=== PATIENT | male | born 1975 | race Two or more races ===

== ENCOUNTER 2021-01-08 16:03 | Outpatient (REF) | payer OTHER, SELFPAY ==
[2021-01-08 17:01] LABS: Hematocrit 46.1 % (42-52); Hemoglobin 15.5 g/dl (14.0-18.0); Mean Corpuscular HGB Conc 33.6 g/dl (31.0-36.0); Mean Corpuscular Hemoglobin 29.5 pg (27.0-33.0); Mean Corpuscular Volume 87.8 fL (80-98); Mean Platelet Volume 12.2 fL (9.4-12.4); Platelet Count 217 X10*3/uL (160-400); Red Blood Count 5.25 X10*6/uL (4.60-5.80); Red Cell Distribution Width 12.2 % (11.0-16.0); White Blood Count 9.5 X10*3/uL (4.8-10.8)
[2021-01-08 17:35] LABS: Alanine Aminotransferase 14 U/L (0-40); Albumin Level 4.1 g/dL (3.5-5.0); Alkaline Phosphatase 58 U/L (39-117); Anion Gap 11 (12-20); Aspartate Amino Transferase 16 U/L (5-37); Bilirubin Direct 0.3 mg/dL (0.0-0.5); Blood Urea Nitrogen 18 mg/dL (9-16); Calcium 8.7 mg/dL (8.4-10.2); Carbon Dioxide 29 mmol/L (22-29); Chloride 107 mmol/L (96-108); Cholesterol 193 mg/dL; Estimated Glomerular Filt Rate > 60; Glucose Random 83 mg/dL (60-115); HDL Cholesterol 43 mg/dL; LDL Cholesterol Calculated 124 mg/dl; Potassium 4.4 mmol/L (3.3-5.1); Sodium 143 mmol/L (135-145); Total Protein 6.8 g/dL (6.5-8.0); Triglycerides 132 mg/dL
[2021-01-08 18:07] LABS: Folate 15.9 ng/mL (> or = 4.0); Vitamin B12 867 pg/mL (200-900)
[2021-01-13 12:56] LABS: Vitamin D 25-OH, D2 <4 ng/mL; Vitamin D 25-OH, D3 29 ng/mL; Vitamin D 25-OH, Total 29 ng/mL (30-100)
== END 2021-01-08 16:04 | disposition home or self-care (01) ==
LOC: HO.LAB 16:03
PROVIDERS: PCP Internal Medicine; Visit Provider Internal Medicine
DX: R10.84 Generalized abdominal pain (principal)
CPT/HCPCS: 36415; 80048; 80061; 80076; 82306; 82607; 82746; 84443; 85027

== ENCOUNTER → 2021-03-22 08:37 | Outpatient (BNVA) | payer OTHER, SELFPAY | PROVIDERS: PCP Internal Medicine; Referring Provider Internal Medicine; Visit Provider Nurse Practitioner | DX: K58.1 Irritable bowel syndrome with constipation (principal); K63.89 Other specified diseases of intestine; R14.0 Abdominal distension (gaseous); D12.6 Benign neoplasm of colon, unspecified | CPT/HCPCS: 99202 ==

== ENCOUNTER → 2021-04-03 10:53 | Outpatient (BNVA) | payer OTHER, SELFPAY | PROVIDERS: Visit Provider Nurse Practitioner ==

== ENCOUNTER 2021-04-25 11:12 | Day surgery (SDC) | payer OTHER, SELFPAY ==
[2021-04-20 09:24] VITALS: BMI 26.0
--- NOTE | 2021-04-24 09:30 | HO.ANESPROP2 ---
Documented by User: Lilo Licona 04/24/21 09:35 HPI - Anesthesia Eval Consult details Narrative: 45yo M for Colonoscopy prn opioids PMFSH Active Problems Active Problems: All Active Problems (Updated 04/20/21 @ 09:22 by Andree Blood) Abdominal pain (Acute) Chronic lower back pain (Acute) Irritable bowel syndrome with constipation (Acute) Abdominal bloating (Acute) Small intestinal bacterial overgrowth (Acute) Tubular adenoma of colon (Acute) Past Medical History Medical History (Updated 04/20/21 @ 09:22 by Andree Blood) IBS (irritable bowel syndrome) Family History Family History Mother Cancer Father Acid reflux disease Surgical History Surgical History (Updated 04/20/21 @ 09:22 by Andree Blood) History of appendectomy History of hernia surgery History of pelvic surgery Hx of colonoscopy Social History Social History Household Members: Spouse and Children Alcohol intake: former Advance Directives: No Advance Directives Information Provided: No Advance Directives on File: No Recently lost weight without trying: No Eating poorly because of decreased appetite: No Nutrition Risks: No Nutritional Risk Meds Allergies Allergy/AdvReac Type Severity Reaction Status Date / Time No Known Allergies Allergy Verified 04/20/21 09:22 Home Medications Medication Instructions Recorded Confirmed Last Taken Type oxycodone 5 mg tablet 5 mg PO QID PRN 03/22/21 Unknown History Exam Exam Date and Time: April 24, 2021 0930 Height,Weight and Vital Signs: Height 6 ft 2 in Weight 92.079 kg Assessment and Plan Assessment Anesthesia Assessment: Chart Reviewed Documented by User: Huma Felton 04/25/21 11:34 PMFSH Past Medical History Medical History (Updated 04/20/21 @ 09:22 by Andree Blood) IBS (irritable bowel syndrome) Family History Family History Mother Cancer Father Acid reflux disease Surgical History Surgical History (Updated 04/20/21 @ 09:22 by Andree Blood) History of appendectomy History of hernia surgery History of pelvic surgery Hx of colonoscopy Social History Social History Household Members: Spouse and Children Alcohol intake: former Advance Directives: No Advance Directives Information Provided: No Advance Directives on File: No Recently lost weight without trying: No Eating poorly because of decreased appetite: No Nutrition Risks: No Nutritional Risk Meds Allergies Allergy/AdvReac Type Severity Reaction Status Date / Time No Known Allergies Allergy Verified 04/20/21 09:22 Home Medications Medication Instructions Recorded Confirmed Last Taken Type oxycodone 5 mg tablet 5 mg PO QID PRN 03/22/21 Unknown History Exam Airway Mallampati Class: II (Missing a couple ) TM Dist: >3cm Neck ROM: Full Heart: rrr Lungs: cta Assessment and Plan Assessment Anesthesia Assessment: Anesthesia Plan Discussed and Chart Reviewed Final Anesthetic Review NPO: Yes (Sip water with meds) ASA Class: II Final Preanesthetic Review: No Changes in Pt Med Stat and Consent Obtained/Reviewed Patient Risk: Intermediate Procedure Risk: Intermediate Anesthetic Plan Anesthetic Plan: MAC: Disposition: Standard PACU
[2021-04-25 12:12] VITALS: BP 118/77; PULSE 63; RESP 16; TEMP 36.3; O2SAT 97
[2021-04-25] MEDS: Lactated Ringers 1,000 ML 100 ML IVCONT (12:28)
--- NOTE | 2021-04-25 12:53 | MHC.SHP ---
Pre-Procedural Eval Section B Chief Complaint: Screening Relevant Family History (Specify if Yes): No Relevant Social History: None Present Medications: see Short Stay Collaborative assessment Medical History: Significant History (IBS) History of Previous Operations: Relevant previous surgery/procedure and date(s) (History of appendectomy History of hernia surgery History of pelvic surgery Hx of colonoscopy) Allergies: Allergies Allergy/AdvReac Type Severity Reaction Status Date / Time No Known Allergies Allergy Verified 04/20/21 09:22 Review of Systems Sugical H&P ROS: Negative: Constitution, Cardiovascular, Respiratory, Neurological, Psychiatric, Hem-Onc, Allergic/Immunologic, Gastrointestinal, Genitourinary, Musculoskeletal, Integumentary, Endocrine and Eyes/Ears/Nose/Throat Exam Surgical H&P Exam: Normal: HEENT, Normal: Heart, Normal: Lungs, Normal: Extremities, Normal: Abdomen, Normal: Skin and Normal: Neurological Plan Diagnosis/Plan: Unchanged I have reviewed the history and physical and performed a pertinent physical examination on my patient. No changes have occurred unless specified.
--- NOTE | 2021-04-25 14:35 | PM.OP ---
Brief Operative Note Date of Service: 04/25/21 Pre-op diagnosis: colon screening Post-op diagnosis: same Procedure: see op note Surgeon: Chaparro Marinelli MD Anesthesia: MAC Was an [employer] used for this Procedure?: No Estimated blood loss (mL): 0 Condition: stable Disposition: PACU
--- NOTE | 2021-04-25 14:35 | W.PM.OPN ---
Operative Note Operative Note Date of Service: 04/25/21 Narrative: Operative Information Procedure Description: Colonoscopy COLONOSCOPY Instrument: Olympus variable stiffness pediatric scope 190L Colonoscopy Monitoring: Vital signs and clinical assessment, continuous EKG monitoring, Pulse oximetry, Carbon Dioxide monitoring and blood pressure monitoring were done throughout the procedure. Colon withdrawal time was 18 minutes. Procedure: The patient was placed in the left lateral decubitis position and pre-procedure medications were administered. After a digital rectal examination of the ano-rectum, the video colonoscope was inserted into the rectum and advanced through the colon to the cecum/TI. The colonoscope was slowly withdrawn in a retrograde panoramic fashion and the colon mucosa was carefully examined including a retroflexed view of the rectum. Findings and interventions are described below. Procedure Difficulty:easy Findings: Terminal Ileum-mild iletiis Cecum: mild erythema and few small erosions, bx taken Ascending Colon: normal, bx taken Transverse Colon -normal, bx taken Descending Colon:normal, bx taken Sigmoid Colon: normal, bx taken Rectum: Retroflexion with small internal hemorrhoids, grade I with skin tags, x 3 sessile polyps 5-7 mm removed with forceps Anorectum - normal Colon preparation: [place] Bowel Preparation Scale Right colon; 2 Transverse colon: 2 Left colon; 1 (0 = Unprepared colon segment with mucosa not seen due to solid stool that cannot be cleared. 1 = Portion of mucosa of the colon segment seen, but other areas of the colon segment not well seen due to staining, residual stool and/or opaque liquid. 2 = Minor amount of residual staining, small fragments of stool and/or opaque liquid, but mucosa of colon segment seen well. 3 = Entire mucosa of colon segment seen well with no residual staining, small fragments of stool or opaque liquid) Impression and Post Procedure Diagnosis: polyps internal hemorrhoids Plan: High fiber diet leaflet Avoid straining at stool, epsom salts and sitz bath, anusol supps or cream Repeat Colonoscopy in 5 years or earlier if clinically indicated Above findings were reviewed with the patient and relevant handouts were provided if indicated.
[2021-04-25 14:37] VITALS: BP 110/75; PULSE 89; RESP 16; TEMP 36.4; O2SAT 97
[2021-04-25 14:54] VITALS: BP 106/75; PULSE 66; RESP 18; O2SAT 100
== END 2021-04-25 15:15 | disposition home or self-care (01) ==
PROVIDERS: PCP Internal Medicine; Visit Provider Internal Medicine Gastroenterology
PROC: 0DJD8ZZ Inspection of Lower Intestinal Tract, Via Natural or Artificial Opening Endoscopic (ICD-10-PCS; CPT 45378; principal; 2021-04-25 12:20)
DX: Z12.11 Encounter for screening for malignant neoplasm of colon (principal); Z86.010 Personal history of colon polyps; K62.1 Rectal polyp; K62.89 Other specified diseases of anus and rectum; K63.89 Other specified diseases of intestine; K52.9 Noninfective gastroenteritis and colitis, unspecified; K64.0 First degree hemorrhoids; K64.4 Residual hemorrhoidal skin tags
CPT/HCPCS: 45380; 88305

== ENCOUNTER → 2021-05-21 14:32 | Outpatient (BNVA) | payer OTHER, SELFPAY | PROVIDERS: Visit Provider Nurse Practitioner ==

== ENCOUNTER 2021-08-06 12:32 | Outpatient (REF) | payer OTHER, SELFPAY ==
--- NOTE | ~2021-08-06 | XR_ITS ---
EXAMINATION: XR CHEST CLINICAL INFORMATION: Pleurodynia COMPARISON: None TECHNIQUE: 2 views of the chest were obtained. FINDINGS: No significant abnormality is noted involving the heart, lungs, mediastinum, bony thorax or soft tissues. XR/XR chest 2V IMPRESSION: Unremarkable examination.
--- NOTE | ~2021-08-06 | XR_ITS ---
EXAMINATION: XR LUMBOSACRAL SPINE CLINICAL INFORMATION: Low back pain. COMPARISON: None TECHNIQUE: Three views of the lumbosacral spine. FINDINGS: The vertebral bodies and posterior elements are normal. The disc spaces are preserved and the vertebral alignment is normal. The paraspinal soft tissues are normal. There has been evidence of a periumbilical hernia repair with mesh. XR/XR lumbar spine 2-3V IMPRESSION: Unremarkable examination.
== END 2021-08-06 12:33 | disposition home or self-care (01) ==
LOC: HO.XRAY 12:32
PROVIDERS: PCP Internal Medicine; Visit Provider Nurse Practitioner Family
DX: M54.5 Low back pain (principal); R07.81 Pleurodynia; G89.29 Other chronic pain
CPT/HCPCS: 71046; 72100

== ENCOUNTER → 2021-09-18 13:28 | Outpatient (BNVA) | payer OTHER, SELFPAY | PROVIDERS: PCP Internal Medicine; Referring Provider Internal Medicine; Visit Provider Internal Medicine | DX: R07.2 Precordial pain (principal); R06.02 Shortness of breath | CPT/HCPCS: 99202 ==

== ENCOUNTER → 2021-10-29 09:27 | Outpatient (REF) | payer OTHER, SELFPAY ==
--- NOTE | 2021-10-29 09:30 | CA_ITS ---
Transthoracic Echocardiogram Patient (Last, First, Middle): Caesar Richardson, Gender: Male Date of : 1975 Age: 46 Procedure Date: 10/29/2021 Procedure Type: Transthoracic Echocardiogram Location: OP Height: 187.96 cm Weight: 85.73 kg BSA: 2.12 m2 Heart Rate: bpm BP: 122 / 68 mmHg Internet Project Manager: Referring MD: Bal Skinner MD Symptoms: R06.02 - Shortness of breath Study Quality: Fair ECG Rhythm: Sinus Conclusions: - The left ventricular systolic function is normal. The calculated ejection fraction is 60% by biplane method. - No obvious valvular pathology seen on this study. Findings Left Ventricle Normal left ventricular cavity size. There is normal left ventricular wall thickness. The left ventricular systolic function is normal. The calculated ejection fraction is 60% by biplane method. Regional wall motion abnormalities can not be excluded due to suboptimal endocardial definition. Diastolic function is normal for age. Right Ventricle Normal right ventricular cavity size and systolic function. Atria Both atria are normal in size. Aortic Valve The aortic valve was not well visualized. There is no aortic valve stenosis. There is no aortic valve regurgitation. Mitral Valve The mitral valve appears normal. There is trace mitral valve regurgitation. There is no mitral valve stenosis. Pulmonic Valve The pulmonic valve was not well visualized. Tricuspid Valve Normal tricuspid valve structure. There is trace tricuspid valve regurgitation. The pulmonary artery systolic pressure is normal. Great Vessels The aortic annulus is normal in size. Venous The inferior vena cava is normal in size and collapses greater than 50% with inspiration. Pericardium/Pleural There is no evidence of pericardial effusion. Prior Study Comparison No prior study available for comparison. Recommendations, Care & Conclusions No obvious valvular pathology seen on this study. Recommend contrast in the future to improve endocardial definition. Measurements 2D Linear Measurements IVSd: 0.88 0.6-0.9/0.6-1.0 cm LVIDd: 5.47 3.9-5.3/4.2-5.9 cm LVIDd Index: 2.58 2.4-3.2/2.2-3.1 cm/m2 LVIDs: 3.45 2.0-3.6 cm LVPWd: 1.07 0.7-1.1 cm Ao Root: 2.50 2.1-3.5 cm LA Diam: 3.40 2.7-3.8/3.0-4.0 cm LAIDs Index: 1.60 1.5-2.3 cm/m2 LV Mass: 255.33 67-162/88-224 g LV Mass Index: 120.44 43-95/49-115 g/m2 LVOT Diam: 2.00 3.0+(-)1.3 cm 2D Systolic Function EF 4C: 50.20 >55% EF 2C: 66.30 >55% EF BiP: 59.90 >55% Mitral Valve MV Pk E: 0.90 MV PK A: 0.77 MV Decel Time: 219.00 E/A: 1.20 E'Lateral: 16.40 E'Medial: 12.10 E/E' Med: 7.40 E/E' Lat: 5.50 PHT: 64.00 MVA PHT: 3.44 Decel Dane: 4.08 Aortic Valve AoV Pk Butch: 1.63 AoV Mn Butch: 1.20 AoV VTI: 0.37 AoV Pk Grad: 11.00 Aov Mn Grad: 6.00 BRIT Cont.VTI: 2.13 LVOT LVOT Pk Butch: 1.23 LVOT Mn Butch: 0.81 LVOT VTI: 0.25 LVOT Pk Grad: 6.00 LVOT Mn Grad: 3.00 LVOT Diam: 2.00 LVOT Area: 3.14 Diastolic Function MV Pk E: 0.90 MV Pk A: 0.77 E/A: 1.20 E'Medial: 12.10 E/E' Med: 7.40 E' Laterial: 16.40 E/E' Lat: 5.50 Right Ventricle TAPSE (mm): 28.00 TVS' Butch: 13.00 Tricuspid Valve TR Pk Butch: 1.56 TR Pk Grad: 10.00 Great Vessels Aorta Ao Root-2D: 2.50 2.0-3.7 cm Updated in Other Vendor System with Status of Final Bal Skinner MD electronically signed on 10/31/2021 12:03:56 PM with status of Final
--- NOTE | 2021-10-29 09:30 | CA_ITS ---
Acquisition Time: 2021-10-29 11:29:42 Total Exercise Time: 00:09:13 Test Indications: , SOB Medications: Protocol: MICHELLE Max HR: 139 BPM 80% of Pred: 172 BPM Max BP: 132/080 mmHG Max Work Load: 10.4 METS Exercise stress test with exercise 9 min 13 sec of Michelle protocol, achieving 81% MPHR and request to stop due to right knee pain, without anginal symptoms, without arrythmia, with normotensive response to exercise, with nondiagnostic EKG for ischemia due to suboptimal heart rate, with no EKG changes of ischemia at acheived workload. Test reviewed with Dr Skinner Referred By: Bal Skinner Overread By: RENE GLOVER
== END ==
LOC: HO.CARD 09:27
PROVIDERS: PCP Nurse Practitioner Family; Visit Provider Internal Medicine
DX: R07.2 Precordial pain (principal); R06.02 Shortness of breath
CPT/HCPCS: 93017; 93306

== ENCOUNTER → 2021-11-26 12:52 | Outpatient (BNVA) | payer OTHER, SELFPAY | PROVIDERS: PCP Nurse Practitioner Family; Referring Provider Internal Medicine; Visit Provider Nurse Practitioner | DX: K58.1 Irritable bowel syndrome with constipation (principal); K63.89 Other specified diseases of intestine; R14.0 Abdominal distension (gaseous) | CPT/HCPCS: 99212 ==

== ENCOUNTER → 2021-11-27 12:49 | Outpatient (BNVA) | payer OTHER, SELFPAY | PROVIDERS: PCP Nurse Practitioner Family; Referring Provider Internal Medicine; Visit Provider Nurse Practitioner Family | DX: R07.2 Precordial pain (principal); R06.02 Shortness of breath; R94.39 Abnormal result of other cardiovascular function study | CPT/HCPCS: 99212 ==

== ENCOUNTER → 2022-01-03 08:58 | Outpatient (REF) | payer OTHER, SELFPAY ==
--- NOTE | ~2022-01-03 | NM_ITS ---
Myocardial perfusion study Indication: Abnormal stress test evaluate for myocardial ischemia Technique: The patient was brought in for a Lexiscan perfusion study on 01/03/2022. Patient performed low-level exercise and was injected 0.4 mg of Lexiscan intravenously. Within a minute of injection, 25 mCi of sestamibi was given intravenously. Images were obtained using the SPECT gamma camera interlaced with the gating device. Images were obtained in supine position. Resting perfusion study was performed on 01/07/2022. Patient was administered 25 mCi of sestamibi intravenously at rest. Images were then obtained in supine position. Images obtained with and without CT attenuation. Total DLP 81 mGy-cm. Images were processed with the software and compared side to side in short axis, horizontal long axis and vertical long axis views. Findings: The stress perfusion study showed non attenuated images show mildly reduced uptake in the inferior wall of the LV myocardium. Remainder of the LV myocardium is normally perfused. Attenuation corrected images show normal uptake in the inferior wall of the LV myocardium.. The gated study shows normal LV systolic function with calculated LVEF of 56%. LV cavity is mildly dilated size. The gated study shows normal systolic wall thickening and contraction of segments. Resting study shows non attenuated images show mildly reduced uptake in the inferior wall of the LV myocardium.. Gating at rest reveals normal systolic wall motion with ejection fraction at 54%. The findings are consistent with no clear reversible defect suggestive of ischemia. NM/NM cardiolite stress test Impression: 1. Myocardial perfusion imaging study shows likely normal myocardial perfusion 2. Gated LVEF is 56% 3. Transient ischemic dilatation not present but LV cavity is dilated EKG is nondiagnostic for ischemia
--- NOTE | 2022-01-03 09:01 | CA_ITS ---
Acquisition Time: 2022-01-03 09:07:53 Total Exercise Time: 00:02:00 Test Indications: CP, SOB Medications: SEE CHART Protocol: LEXISCAN Max HR: 144 BPM 83% of Pred: 172 BPM Max BP: 122/074 mmHG Max Work Load: 1.6 METS Pharmacological stress test with Lexiscan injection, while walking on treadmill, without anginal symptoms, without arrythmia, with normotensive response to injection, with nondiagnostic EKG for ischemia. In recovery he had sinus tachycardia that was treated with amionphylline 75mg IVP to reverse Lexiscan with improvement in heart rate. Nuclear images pending. Test reviewed with Dr Skinner Referred By: Deirdre Gutiérerz Overread By: DEIRDRE GUTIÉRREZ
== END ==
LOC: HO.CARD 08:58
PROVIDERS: Visit Provider Nurse Practitioner Family
DX: R07.2 Precordial pain (principal); R94.39 Abnormal result of other cardiovascular function study
CPT/HCPCS: 78452; 93017; A9500; J0280; J2785

== ENCOUNTER 2022-02-18 18:10 | Outpatient (REF) | payer OTHER, SELFPAY ==
--- NOTE | ~2022-02-18 | MR_ITS ---
MR LUMBAR SPINE WITHOUT CONTRAST CLINICAL INFORMATION: Radiculopathy, lumbar region. COMPARISON: Lumbar spine radiographs 08/06/2021. TECHNIQUE: MRI of the lumbar spine was obtained using routine sequences without contrast. FINDINGS: There are 5 nonrib-bearing lumbar-type vertebral bodies. Lumbar alignment is normal. The vertebral body heights are maintained. Mild disc volume loss and disc desiccation at the L4-L5 and L5-S1 levels. There are many disc volumes are preserved and the remaining discs remain well-hydrated. There is no bone marrow edema. There are no acute fractures. The conus terminates at the L1 level. There are no significant extraspinal soft tissue findings. L1-L2: Disc contour is normal. No central canal stenosis and no foraminal stenosis. L2-L3: Small annular disc bulge and mild bilateral facet arthropathy. No central canal stenosis and no foraminal stenosis. L3-L4: Small right and left lateral disc protrusions result in mild bilateral foraminal encroachment. Small ventral annular fissure. Mild to moderate bilateral facet arthropathy. No central canal stenosis. L4-L5: Small annular disc bulge and mild to moderate bilateral facet arthropathy and ligamentum flavum thickening. No central canal stenosis. Left lateral annular fissure. Mild foraminal encroachment bilaterally. L5-S1: There is a shallow left paracentral disc protrusion associated with an annular fissure that results in mild posterior deflection of the traversing left S1 nerve root within the left subarticular zone. Background annular disc bulge and mild to moderate bilateral facet arthropathy. No central canal stenosis and no foraminal stenosis. MR/MR lumbar spine wo con IMPRESSION: At L5-S1, a shallow left paracentral disc protrusion associated with an annular fissure results in mild posterior deflection of the traversing left S1 nerve root within the left subarticular zone. Additional mild to moderate spondylitic changes throughout the lumbar spine as described. Annular fissures at the L3-L4, L4-L5, and L5-S1 levels. No severe central canal stenosis and no severe foraminal stenosis within the lumbar spine.
== END 2022-02-18 18:11 | disposition home or self-care (01) ==
LOC: HO.MRI 18:10
PROVIDERS: Visit Provider Nurse Practitioner Acute Care
DX: M54.16 Radiculopathy, lumbar region (principal); G89.29 Other chronic pain; Z87.81 Personal history of (healed) traumatic fracture
CPT/HCPCS: 72148

== ENCOUNTER 2022-03-06 16:50 | Outpatient (REF) | payer OTHER, SELFPAY ==
[2022-03-06 17:37] LABS: Influenza A PCR NEGATIVE (Negative); Influenza B PCR NEGATIVE (Negative); Resp Syncy Virus RNA Qual PCR NEGATIVE (Negative); SARS COV2 PCR INHOUSE NEGATIVE (Negative)
== END 2022-03-06 16:51 | disposition home or self-care (01) ==
LOC: HO.LNP 16:50
PROVIDERS: Visit Provider Nurse Practitioner Family
DX: Z20.822 Contact with and (suspected) exposure to COVID-19 (principal); R09.81 Nasal congestion
CPT/HCPCS: 0241U

== ENCOUNTER 2022-04-03 15:22 | Outpatient (REF) | payer OTHER, SELFPAY ==
--- NOTE | ~2022-04-03 | XR_ITS ---
EXAMINATION: XR RIBS, RIGHT CLINICAL INFORMATION: Chest pain. COMPARISON: None TECHNIQUE: 3 views of the right ribs were obtained. FINDINGS: Lungs are clear. No consolidation, pneumothorax, or pleural effusion. The cardiomediastinal silhouette and pulmonary vasculature are normal. Osseous structures are unremarkable. Ribs are intact. No fractures are identified. XR/XR ribs RT min 3V w CXR1V IMPRESSION: Unremarkable chest exam. Unremarkable right rib series.
== END 2022-04-03 15:23 | disposition home or self-care (01) ==
LOC: HO.XRAY 15:22
PROVIDERS: PCP Nurse Practitioner Family; Visit Provider Nurse Practitioner Family
DX: R07.89 Other chest pain (principal)
CPT/HCPCS: 71101

== ENCOUNTER 2022-05-07 09:58 | Outpatient (REF) | payer OTHER, SELFPAY ==
--- NOTE | ~2022-05-07 | XR_ITS ---
EXAMINATION: XR PELVIS CLINICAL INFORMATION: Recent fracture COMPARISON: Lumbar spine radiographs 08/06/2021 TECHNIQUE: AP view of the pelvis. FINDINGS: Mesh from prior midline ventral hernia repair. Moderate degenerative changes of the right sacroiliac joint with loss of joint space. Hip joint spaces are maintained. Fractures of the left superior and inferior pubic ramus morphologically favored to be chronic with more age-indeterminate appearing fracture of the right inferior pubic ramus. XR/XR pelvis 1-2V IMPRESSION: Fractures of the left superior and inferior pubic ramus morphologically favored to be chronic with more age-indeterminate appearing fracture of the right inferior pubic ramus. Recommend correlation with history of trauma and point tenderness, and outside prior imaging if available. If further imaging is clinically desired a CT could be obtained for definitive characterization. Moderate degenerative changes of the right sacroiliac joint with loss of joint space.
== END 2022-05-07 09:59 | disposition home or self-care (01) ==
LOC: HO.XRAY 09:58
PROVIDERS: PCP Internal Medicine; Visit Provider Nurse Practitioner Family
DX: M54.42 Lumbago with sciatica, left side (principal); M47.816 Spondylosis without myelopathy or radiculopathy, lumbar region; R20.2 Paresthesia of skin; R20.0 Anesthesia of skin; Z87.81 Personal history of (healed) traumatic fracture
CPT/HCPCS: 72170; 99202

== ENCOUNTER 2022-05-22 09:36 | Outpatient (REF) | payer OTHER, SELFPAY ==
--- NOTE | ~2022-05-22 | CT_ITS ---
EXAMINATION: CT PELVIS WITHOUT CONTRAST CLINICAL INFORMATION: Pain. Prior fracture. COMPARISON: Radiographs 04/29/2022 TECHNIQUE: Helical scanning was performed with submillimeter collimation through the pelvis. Sagittal and coronal multiplanar 2-D reconstructions were obtained. This CT examination was performed using dose optimization techniques as appropriate, variously including the following: *Automated exposure control *Adjustment of mA and/or kV according to patient size (this includes techniques or standardized protocols for targeted exams where dose is matched to indication/reason for exam; i.e. extremities or head) *Use of iterative reconstruction technique DLP: 325 mGy-cm FINDINGS: There are remote, healed fractures of the left pubic bone including the junction of the inferior pubic ramus, and possibly the superior pubic ramus at the junction with the anterior acetabulum. There is no acute fracture. Mild bilateral hip osteoarthritis with small marginal osteophytes appears symmetric. The right sacroiliac joint is partially fused. Mild degenerative changes of the left sacroiliac joint. No adenopathy. No free pelvic fluid. Metal coils of the anterior lower abdominal wall may be from a previous hernia repair. CT/CT pelvis wo con IMPRESSION: Remote, healed fractures as described. Partial fusion of the right sacroiliac joint. No acute osseous abnormalities. Mild bilateral hip osteoarthritis.
== END 2022-05-22 09:37 | disposition home or self-care (01) ==
LOC: HO.CT 09:36
PROVIDERS: Visit Provider Nurse Practitioner Family
DX: G89.29 Other chronic pain (principal); M54.50 Low back pain, unspecified; Z87.81 Personal history of (healed) traumatic fracture
CPT/HCPCS: 72192

== ENCOUNTER 2023-03-11 10:43 | Outpatient (REF) | payer OTHER, SELFPAY ==
--- NOTE | ~2023-03-11 | US_ITS ---
EXAMINATION: US PELVIS LIMITED (BLADDER) CLINICAL INFORMATION: Frequency of micturition. COMPARISON: None available. TECHNIQUE: Real-time imaging of the bladder. FINDINGS: BLADDER: Well distended and normal. Bilateral ureteral jets are demonstrated. Prevoid bladder volume is 243 mL. Postvoid bladder volume is 16.6 mL. The prostate volume is 24.4 mL. US/US bladder IMPRESSION: Small postvoid residual bladder volume. Normal bilateral ureteral jets.
== END 2023-03-11 10:44 | disposition home or self-care (01) ==
LOC: HO.US 10:43
PROVIDERS: PCP Internal Medicine; Visit Provider Internal Medicine
DX: R35.0 Frequency of micturition (principal)
CPT/HCPCS: 76857

== ENCOUNTER 2024-06-11 07:55 | Outpatient (AMB) | payer OTHER, SELFPAY ==
[2024-06-11 08:01] VITALS: BP 128/74; PULSE 68; O2SAT 98; BMI 26.3
--- NOTE | 2024-06-11 08:01 | A.OFFPC_ITS ---
Vital Signs 06/11/24 08:01 Height 6 ft 2 in Weight 205 lb BMI 26.3 BP 128/74 Blood Pressure Location Lt brachial Position Sitting Pulse 68 Pulse Source Pulse Oximeter Pulse Oximetry (%) 98 Oxygen Delivery Method Room Air Intake Visit Reasons: Requesting Referral for Psych Jewel Grinder Required: No Allergies No Known Allergies Allergy (Verified 06/11/24 08:01) Medication List - Last Reconciled 06/11/24 by Cassidy Murcia PA-C bisacodyl 10 mg (2 x 5 mg) PO BID 30 days cetirizine 10 mg PO DAILY cholecalciferol (vitamin D3) 1,250 mcg PO QWEEK clonazepam 0.25 mg (1/2 x 0.5 mg) PO BID diclofenac sodium 1% (Voltaren Arthritis Pain) 2 grams topical QID hydroxyzine HCl 50 mg PO TID PRN lidocaine 5% 1 patch topical DAILY meloxicam 15 mg PO DAILY omeprazole 40 mg PO QAM sertraline 50 mg PO DAILY 30 days Tobacco use date assessed: 06/11/24 Dental Screening Dental Screen Date: 06/11/24 HPI Requesting Referral for Psych HPI Details 48-year-old male with past medical histo ry of IBS and GERD last seen by Dr. Deutsch 01/2023 coming in for acute problem.? In review of the notes, patient had bladder ultrasound 03/14/2023 showed normal postvoid residual. He was previously a patient of [facility] but was dismissed from the practice after missing a few appointments. He was receiving Hydroxyzine and Klonipin from these providers for treatment of his anxiety. He was dismissed in October 2023 and given 3 month supply of his medications. He has been on a wait list for psych and has been unable to establish care with a new provider. He also mentions he has been having chronic back pain and previously saw pain management and recieved an injection which he found helpful. He also mentions he has been coughing more recently and sometimes worse at night he denies fevers but does mention he has an extensive family history of lung cancer. [facility] Surgical History (System 09/11/23 @ 12:47 by Aide Johnson) Hx of colonoscopy History of hernia surgery History of appendectomy History of pelvic surgery Family History Mother Cancer Father Acid reflux disease Social History (System 09/11/23 @ 12:47 by Aide Johnson) Household Members: Spouse and Children Housing: House Alcohol intake: former Patient Tobacco Use Status: Former Tobacco user Tobacco use type: Cigarette Years Smoked: 15 years e-Cigarette/Vaping Use: Never Used Second Hand Smoke Exposure: No service: No Current occupational status: employed Cognitive needs: No Hearing needs: No Vision needs: Yes Questionnaire PHQ-9 Over the last 2 weeks, how often have you been bothered by any of the following problems? 1. Little interest or pleasure in doing things: nearly every day 2. Feeling down, depressed, or hopeless: nearly every day 3. Trouble falling or staying asleep, or sleeping too much: nearly every day 4. Feeling tired or having little energy: nearly every day 5. Poor appetite or overeating: nearly every day 6. Feeling bad about yourself - or that you are a failure or have let yourself or your family down: not at all 7. Trouble concentrating on things, such as reading the newspaper or watching television: nearly every day 8. Moving or speaking so slowly that other people could have noticed. Or the opposite - being so fidgety or restless that you have been moving around a lot more than usual: nearly every day 9. Thoughts that you would be better off or of hurting yourself in some way: not at all Total score: 21 Depression Screening Interpretation: Positive Depression Screening Done: Yes 81406 - PHQ-9 Billing: Yes Source: Developed by Drs. Torey Isbell, Pippa Costello, Baldev Quintana and colleagues, with an educational isiah from [employer]. Thrive Questionnaire Date Thrive assessed: 01/22/23 AUDIT C Alcohol Use Questionnaire (AUDIT-C) 1. How often do you have a drink containing alcohol?: Never 3. How often do you have six or more drinks on one occasion?: Never Total Score: 0 Score Reviewed/Action Taken: No LISANDRA-7 AMB Questionnaire LISANDRA-7 Date LISANDRA - 7 assessed: 06/11/24 Feeling nervous, anxious, or on edge: 3 = Nearly every day Not being able to stop or control worryin = Nearly every day Worrying too much about different things: 3 = Nearly every day Trouble relaxin = Nearly every day Being so restless that it is hard to sit still: 3 = Nearly every day Becoming easily annoyed or irritable: 3 = Nearly every day Feeling afraid as if something awful might happen: 3 = Nearly every day Total LISANDRA-7 score (0-4 normal; 5-9 mild; 10-14 moderate; 15-21 severe): 21 Source: Developed by Drs. Torey Isbell, Pippa Costello, Baldev Quintana and colleagues, with an educational isiah from [employer]. LISANDRA-7 Assessment Billing LISANDRA-7 Assessment Tool: LISANDRA-7 Assessment 80806 Review of Systems Const Denies body aches, Denies chills, Denies fever(s), Denies headache(s) and Denies poor appetite Eyes Reports no additional complaints ENT Denies dysphagia, Denies dizziness, Denies headache(s) and Denies odynophagia Card Denies chest pain, Denies syncope, Denies edema, Denies irregular heart rhythm, Denies lightheadedness and Denies dyspnea Resp Reports cough, Denies hemoptysis, Reports excessive phlegm production, Denies pain with cough and Denies dyspnea GI Denies abdominal pain, Denies constipation, Denies dysphagia, Denies diarrhea, Denies nausea, Denies odynophagia and Denies vomiting Reports no additional complaints Musc Details: low back and mid back pain Denies abnormal gait Skin/Breast Reports system reviewed and no additional complaints, except as documented Neuro Denies abnormal gait, Denies dizziness, Denies syncope and Denies headache(s) Psych Reports anxiety and Reports depression Physical exam (Primary Care) Vital Signs: Last Vital Signs Pulse 68 06/11/24 08:01 BP 128/74 06/11/24 08:01 Pulse Ox 98 06/11/24 08:01 Oxygen Delivery Method Room Air 06/11/24 08:01 BMI result Body Mass Index 26.3 Tobacco/Smoking Status: Tobacco use Status Tobacco use date assessed 06/11/24 06/11/24 08:09 Patient Tobacco Use Status Former Tobacco user 06/11/24 08:03 Tobacco use type Cigarette 06/11/24 08:03 e-Cigarette/Vaping Use Never Used 06/11/24 08:03 Depression Screening Interpretation: Positive Thrive Assessment: Date of Thrive Assessment Date Thrive assessed 01/22/23 06/11/24 08:03 Const General: cooperative, healthy appearing, comfortable and no acute distress Orientation/consciousness: patient oriented x3 [facility] Head: Yes normocephalic Ears: hearing grossly normal bilaterally General nose exam: Normal external nose present Eyes General: appearance normal, both eyes and all related structures Conjunctivae: conjunctivae normal Neck Neck: Yes full ROM and Yes no lymphadenopathy Resp Effort & Inspection: normal respiratory effort Auscultation: clear to auscultation bilaterally (rhonchi that cleared with cough ), no crackles, no rales, no rhonchi and no wheezes Cardio Rate: regular rate Rhythm: regular rhythm Back/Spine/Pelvis Other: tenderness to palpation of thoracic spine, no tenderness over lumbar spine or sacrum Skin General skin exam: no rashes or lesions noted Neuro General: patient oriented x3 Gait exam (Neuro): Normal gait present Extrem General: Yes normal to inspection, Yes full ROM and No edema Psych Affect: normal affect Attitude: cooperative Insight: Good insight present (Psych) Judgement: Good judgement present (Psych) Assessment and Plan Assessment & Plan (1) Panic attacks: Code(s): F41.0 - Panic disorder [episodic paroxysmal anxiety] Plan: Patient was previously being treated through [facility] with Klonipin and Hydroxyzine. Patient states he has been taking Sertraline continuously since discharge and Hydroxyzine intermittently. Referred to outpatient psych bridge clinic for further management while awaiting counselor and refiled Hydroxyzine and Sertraline today. Denies any thoughts of self harm and will reach out if this changes. (2) Degenerative disc disease at L5-S1 level: Code(s): M51.37 - Other intervertebral disc degeneration, lumbosacral region Plan: Patient was previously seen by pain management and given a back injection which he found helpful however has not been back since. The pain is primarily while stationary after working all day. Referred to pain management again for repeat injection. (3) Back pain: Code(s): M54.9 - Dorsalgia, unspecified Plan: Patient has been having thoracic back pain with pain to palpation which is relatively new. Will obtain XR of the thoracic spine and follow up. (4) Cough: Code(s): R05.9 - Cough, unspecified Plan: patient has been having cough throughout the day but worse at night with increased phelgm production. Denies fevers, weight loss, hemoptysis or chills. Will order for CXR to evaluate. Plan Patient is overdue for annual physical which is scheduled at todays visit. Updated blood work ordered. This note was constructed using voice recognition software. While every effort has been made to ensure accuracy and sales commissions analyst, still areas may have been included sometimes these areas may affect the content or meeting of the given symptoms. Total time spent caring for the patient today was 30 minutes. This includes time spent before the visit reviewing the chart, time spent during the visit, and time spent after the visit and documentation. Orders: Orders Complete Blood Count Auto Diff Today Z00.00 - Encounter for general adult medical examination without abnormal findings Comprehensive Met. Panel Today Z00.00 - Encounter for general adult medical examination without abnormal findings Free T4 (Free Thyroxine) Today Z00.00 - Encounter for general adult medical examination without abnormal findings Lipid Panel Today Z00.00 - Encounter for general adult medical examination without abnormal findings Prostate Specific Antigen Scr Today Z00.00 - Encounter for general adult medical examination without abnormal findings Thyroid Stimulating Hormone Today Z00.00 - Encounter for general adult medical examination without abnormal findings XR chest 2V Today R05.9 - Cough, unspecified XR thoracic spine 2V Today M54.9 - Dorsalgia, unspecified Vitamin B12 and Folate Today Z00.00 - Encounter for general adult medical examination without abnormal findings Vitamin D 25-OH (D2 and D3) Today Z00.00 - Encounter for general adult medical examination without abnormal findings Referrals Psychiatry Outpatient Consultation Service F41.0 - Panic disorder [episodic paroxysmal anxiety] Pain Management Referral M51.37 - Other intervertebral disc degeneration, lumbosacral region Medications: Refilled hydroxyzine HCl 50 mg PO TID PRN 90 tabs 3RF anxiety F41.9 - Anxiety disorder, unspecified sertraline 50 mg PO DAILY 30 days 90 tabs 0RF F41.0 - Panic disorder [episodic paroxysmal anxiety] Coding Level of Care Code Est Pt Level 4 (38949) Diagnoses Panic attacks F41.0 Degenerative disc disease at L5-S1 level M51.37 Back pain M54.9 Cough R05.9 Additional Codes LISANDRA-7 Assessment Billing - LISANDRA-7 Assessment Tool: LISANDRA-7 Assessment [id number] ([id number])
== END 2024-06-11 08:38 | disposition home or self-care (01) ==
PROVIDERS: PCP Internal Medicine
DX: R05.9 Cough, unspecified (principal); F41.0 Panic disorder [episodic paroxysmal anxiety]; M51.37 Other intervertebral disc degeneration, lumbosacral region; M54.9 Dorsalgia, unspecified
CPT/HCPCS: 99214

== ENCOUNTER 2024-07-13 07:56 | Outpatient (AMB) | payer OTHER, SELFPAY ==
[2024-07-13 07:59] VITALS: BP 130/72; PULSE 74; O2SAT 98; BMI 26.4
--- NOTE | 2024-07-13 07:59 | A.OFFPC_ITS ---
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: No Allergies No Known Allergies Allergy (Verified 07/13/24 08:00) Medication List - Last Reconciled 07/13/24 by Cassidy Murcia PA-C bisacodyl 10 mg (2 x 5 mg) PO BID 30 days cetirizine 10 mg PO DAILY cholecalciferol (vitamin D3) 1,250 mcg PO QWEEK clonazepam 0.25 mg (1/2 x 0.5 mg) PO BID diclofenac sodium 1% (Voltaren Arthritis Pain) 2 grams topical QID hydroxyzine HCl 50 mg PO TID PRN lidocaine 5% 1 patch topical DAILY meloxicam 15 mg PO DAILY omeprazole 40 mg PO QAM sertraline 50 mg PO DAILY 30 days Tobacco use date assessed: 06/11/24 Dental Screening Dental Screen Date: 06/11/24 Did you have a dental visit in the last 12 months?: Yes Did you have a dental problem in the last 6 months where you did not have access to dental care?: No Was dental information given to patient?: Patient has dentist HPI Annual Exam HPI Details 48-year-old male with past medical histo ry of panic attacks, GERD and c onstipation last seen by Dr. Deutsch coming in for annual visit.? In review of the notes, patient was scheduled for a pain management appointment and did not attend this appointment. States that he continues to have back pain and is scheduled to see pain management August 02. He also mentions he has increased anxiety and depression due to recent life stresses and feels like the sertraline is not helping as much. Last colonoscopy 2020 repeat in 5 years. [facility] Surgical History Hx of colonoscopy History of hernia surgery History of appendectomy History of pelvic surgery Family History Mother Cancer Father Acid reflux disease Social History Household Members: Spouse and Children Housing: House Alcohol intake: former Patient Tobacco Use Status: Former Tobacco user Tobacco use type: Cigarette Years Smoked: 15 years e-Cigarette/Vaping Use: Never Used Second Hand Smoke Exposure: No service: No Current occupational status: employed Cognitive needs: No Hearing needs: No Vision needs: Yes Questionnaire PHQ-9 Over the last 2 weeks, how often have you been bothered by any of the following problems? 1. Little interest or pleasure in doing things: nearly every day 2. Feeling down, depressed, or hopeless: nearly every day 3. Trouble falling or staying asleep, or sleeping too much: nearly every day 4. Feeling tired or having little energy: nearly every day 5. Poor appetite or overeating: nearly every day 6. Feeling bad about yourself - or that you are a failure or have let yourself or your family down: not at all 7. Trouble concentrating on things, such as reading the newspaper or watching television: nearly every day 8. Moving or speaking so slowly that other people could have noticed. Or the opposite - being so fidgety or restless that you have been moving around a lot more than usual: nearly every day 9. Thoughts that you would be better off or of hurting yourself in some way: not at all Total score: 21 Depression Screening Interpretation: Positive Depression Screening Follow-up: In treatment and Other Depression Screening Done: Yes 91259 - PHQ-9 Billing: Yes Source: Developed by Drs. Torey Isbell, Pippa Costello, Baldev Quintana and colleagues, with an educational isiah from [employer]. Thrive Questionnaire Date Thrive assessed: 07/10/24 I am a: Patient What is your living situation today?: I have a steady place to live Within the past 12 months, did the food you bought not last and you didn't have the money to get more?: Never true Within the past 12 months, did you worry whether your food would run out before you got money to buy more?: Never true Do you have trouble paying for medicines?: No Do you have trouble getting transportation to medical appointments?: No Do you have trouble paying your heating and electricity bill?: No Do you have trouble taking care of your child, family member or friend?: No Do you have trouble with day-to-day activities such as bathing, preparing meals, shopping, managing finances, etc.?: Yes Are you currently unemployed and looking for a job?: No Are you interested in more education?: No Please select the resources that you would like help with: None Currently or been in a relationship where the following occur: No concerns reported THRIVE Score: 0 AUDIT C Alcohol Use Questionnaire (AUDIT-C) 1. How often do you have a drink containing alcohol?: Never 3. How often do you have six or more drinks on one occasion?: Never Total Score: 0 LISANDRA-7 AMB Questionnaire LISANDRA-7 Date LISANDRA - 7 assessed: 06/11/24 Feeling nervous, anxious, or on edge: 2 = More than half the days Not being able to stop or control worryin = More than half the days Worrying too much about different things: 2 = More than half the days Trouble relaxin = More than half the days Being so restless that it is hard to sit still: 2 = More than half the days Becoming easily annoyed or irritable: 2 = More than half the days Feeling afraid as if something awful might happen: 2 = More than half the days Total LISANDRA-7 score (0-4 normal; 5-9 mild; 10-14 moderate; 15-21 severe): 14 Source: Developed by Drs. Torey Isbell, Pippa Costello, Baldev Quintana and colleagues, with an educational isiah from [employer]. LISANDRA-7 Assessment Billing LISANDRA-7 Assessment Tool: LISANDRA-7 Assessment 91681 Review of Systems Const Denies body aches, Denies fatigue, Denies fever(s), Denies frequent falls, Denies headache(s) and Denies weakness Eyes Reports no additional complaints, Denies change in vision and Reports requires corrective lenses ENT Denies dysphagia, Denies dizziness, Denies facial pain, Denies headache(s), Denies nasal congestion and Denies odynophagia Card Denies chest pain, Denies syncope, Denies irregular heart rhythm, Denies leg edema, Denies lightheadedness and Denies dyspnea Resp Denies cough and Denies dyspnea GI Denies constipation, Denies dysphagia, Denies dyspepsia, Denies diarrhea, Reports nausea, Denies odynophagia and Denies vomiting Denies dysuria, Denies urinary frequency, Denies urinary hesitancy and Denies urinary urgency Musc Denies back pain and Denies myalgias Skin/Breast Reports system reviewed and no additional complaints, except as documented Neuro Denies dizziness, Denies syncope, Denies frequent falls, Denies headache(s) and Denies weakness Psych Reports no additional complaints Endo Denies fatigue Physical exam (Primary Care) Vital Signs: Last Vital Signs Pulse 74 07/13/24 07:59 BP 130/72 07/13/24 07:59 Pulse Ox 98 07/13/24 07:59 Oxygen Delivery Method Room Air 07/13/24 07:59 BMI result Body Mass Index 26.4 Tobacco/Smoking Status: Tobacco use Status Tobacco use date assessed 06/11/24 07/13/24 07:59 Patient Tobacco Use Status Former Tobacco user 07/13/24 07:59 Tobacco use type Cigarette 07/13/24 07:59 e-Cigarette/Vaping Use Never Used 07/13/24 07:59 PHQ-9: PHQ-9 Score PHQ-9: Total score 21 07/13/24 08:03 Depression Screening Interpretation: Positive Depression Screening Follow-up: In treatment and Other Thrive Assessment: Date of Thrive Assessment Date Thrive assessed 07/10/24 07/13/24 07:59 Currently or been in a relationship where the following occur: No concerns reported Const General: cooperative, healthy appearing, comfortable and no acute distress Orientation/consciousness: patient oriented x3 [facility] Head: Yes normocephalic Ears: hearing grossly normal bilaterally, external ears normal, TM's normal bilaterally and EAC's normal General nose exam: Normal external nose present Face and sinus: Yes normal facial exam and Yes sinuses nontender Mouth: Normal oral and palatal mucosa present and tongue normal Throat: Yes posterior oropharynx normal Eyes General: appearance normal, both eyes and all related structures Conjunctivae: conjunctivae normal Pupils: Equal, round and reactive pupils present EOM: EOMs intact bilaterally and No Nystagmus present Neck Neck: Yes normal visual inspection, Yes full ROM and Yes no lymphadenopathy Chest Chest palpation & inspection: normal inspection of the chest Resp Effort & Inspection: normal respiratory effort Auscultation: clear to auscultation bilaterally, no crackles, no rales, no rhonchi, no wheezes and breath sounds present Cardio Rate: regular rate Rhythm: regular rhythm Peripheral pulses: radial pulses present and dorsalis pedis present GI Inspection: Yes normal to inspection and No Abdominal wall edema Palpation (GI): Soft to palpation, not firm and nontender Auscultation: normal bowel sounds Rectal Exam - Male: Yes deferred General: Yes no CVA tenderness Back/Spine/Pelvis Other: Thoracic tenderness to palpation Back: no CVA tenderness Skin General skin exam: no rashes or lesions noted Neuro General: patient oriented x3 Cranial nerves: Yes Equal, round and reactive pupils present, Yes Midline tongue present, Yes Ability to bilaterally elevate shoulders present and No Nystagmus present Gait exam (Neuro): Normal gait present Extrem General: Yes normal to inspection, Yes full ROM, No no pedal edema and No edema Psych Speech and movement: Normal speech and movement present Affect: normal affect Insight: Good insight present (Psych) Judgement: Good judgement present (Psych) Assessment and Plan Assessment & Plan (1) GERD (gastroesophageal reflux disease): Code(s): K21.9 - Gastro-esophageal reflux disease without esophagitis Plan: Avoid trigger foods such as citrus, tomato products, soda, caffeine, spicy foods and other foods that may be irritating to your stomach. Avoid laying flat 3-4 hours after eating and elevate the head of the bed 30 degrees to prevent acid from moving into the esophagus. Continue on omeprazole (2) Panic attacks: Code(s): F41.0 - Panic disorder [episodic paroxysmal anxiety] Plan: Continue to use hydroxyzine as needed. Referral placed to psychiatric outpatient clinic. Advised patient to call if he would like to make an appointment earlier. (3) Irritable bowel syndrome with constipation: Code(s): K58.1 - Irritable bowel syndrome with constipation Plan: No issues with constipation at this time. Continue on bisacodyl as needed (4) Depression: Code(s): F32.A - Depression, unspecified Plan: Patient notes increased anxiety and depression due to recent life stresses. Increased dose of sertraline to 100 mg and discussed possible side effects with patient. Advised patient to discontinue medication and follow up with the office if he experiences any side effects from this dose change. Referral to counseling and outpatient psychiatric placed. Follow up in 3 months (5) Degenerative disc disease at L5-S1 level: Code(s): M51.37 - Other intervertebral disc degeneration, lumbosacral region Plan: Pain management appointment at the end of July. Continue on medications as needed. (6) Annual physical exam: Code(s): Z00.00 - Encounter for general adult medical examination without abnormal findings Plan: Patient is up-to-date on all recommended routine screenings and vaccinations for his age. Advised patient to follow up with blood work. Plan This note was constructed using voice recognition software. While every effort has been made to ensure accuracy and ui ux developer, still areas may have been included sometimes these areas may affect the content or meeting of the given symptoms. Total time spent caring for the patient today was 30 minutes. This includes time spent before the visit reviewing the chart, time spent during the visit, and time spent after the visit and documentation. Orders: Orders UA CC w/rflx Micro + Cult Today R10.819 - Abdominal tenderness, unspecified site Referrals Counseling Referral F32.A - Depression, unspecified, F41.0 - Panic disorder [episodic paroxysmal anxiety] Medications: New sertraline 100 mg PO DAILY 30 tabs 2RF Discontinued sertraline Discontinued Reason: Ancillary Entered New Order 50 mg PO DAILY 30 days 90 tabs 0RF F41.0 - Panic disorder [episodic paroxysmal anxiety] Coding Level of Care Code Est Pt Prev Care 40-64y(60203) Diagnoses GERD (gastroesophageal reflux disease) K21.9 Panic attacks F41.0 Irritable bowel syndrome with constipation K58.1 Depression F32.A Degenerative disc disease at L5-S1 level M51.37 Annual physical exam Z00.00 Additional Codes LISANDRA-7 Assessment Billing - LISANDRA-7 Assessment Tool: LISANDRA-7 Assessment [id number] ([id number])
== END 2024-07-13 08:33 | disposition home or self-care (01) ==
PROVIDERS: PCP Internal Medicine
DX: Z00.00 Encounter for general adult medical examination without abnormal findings (principal); K21.9 Gastro-esophageal reflux disease without esophagitis; F41.0 Panic disorder [episodic paroxysmal anxiety]; K58.1 Irritable bowel syndrome with constipation; F32.A Depression, unspecified; M51.37 Other intervertebral disc degeneration, lumbosacral region
CPT/HCPCS: 99396

== ENCOUNTER 2024-07-13 08:44 | Outpatient (REF) | payer OTHER, SELFPAY ==
--- NOTE | ~2024-07-13 | XR_ITS ---
EXAMINATION: XR CHEST CLINICAL INFORMATION: Cough. COMPARISON: Chest radiograph 04/03/2022. TECHNIQUE: 2 views of the chest were obtained. FINDINGS: Normal appearance of the cardiomediastinal silhouette. No focal air space opacities, pleural effusion or pneumothorax. Chronic appearing fracture of the right posterolateral eighth rib with callus formation. No acute osseous findings. XR/XR chest 2V IMPRESSION: 1. No acute cardiopulmonary findings. 2. Chronic appearing fracture of the right posterolateral eighth rib with callus formation. Electronically signed by: Agnieszka Shaw MD 08/02/2024 11:47 AM EDT
--- NOTE | ~2024-07-13 | XR_ITS ---
EXAMINATION: XR THORACIC SPINE CLINICAL INFORMATION: Back pain. COMPARISON: None available. TECHNIQUE: 3 views of the thoracic spine were obtained. FINDINGS: Normal vertebral body alignment. The thoracic kyphosis is maintained. No acute fracture or subluxation. No loss of vertebral body height. Mild loss of intervertebral disc height with small anterior endplate osteophytes within the lower thoracic spine. No concerning lytic or blastic osseous lesion. The visualized lungs are clear. XR/XR thoracic spine 2V IMPRESSION: Mild degenerative disc disease within the lower thoracic spine. Electronically signed by: Dallas Sebastian MD 07/29/2024 08:57 PM EDT
[2024-07-13 09:01] LABS: MANUAL DIFF FLAG NO
[2024-07-13 09:35] LABS: Basophils Absolute Auto 0.1 X10*3/uL (0.0-0.2); Basophils Percent Auto 0.8 % (0-2); Eosinophils Absolute Auto 0.4 X10*3/uL (0.0-0.4); Eosinophils Percent Auto 3.3 % (0-4); Hematocrit 45.8 % (42.0-52.0); Hemoglobin 15.2 g/dl (14.0-18.0); Imm Gran Abs Auto 0.04 X10*3/uL (0.00-0.03); Imm Gran Pct Auto 0.4 % (0.0-0.4); Lymphocytes Absolute Auto 2.6 X10*3/uL (1.2-4.9); Lymphocytes Percent Auto 24.3 % (20-40); Mean Corpuscular HGB Conc 33.2 g/dl (31.0-36.0); Mean Corpuscular Hemoglobin 29.1 pg (27.0-33.0); Mean Corpuscular Volume 87.7 fL (80.0-98.0); Mean Platelet Volume 11.3 fL (9.4-12.4); Monocytes Absolute Auto 0.7 X10*3/uL (0.1-1.2); Monocytes Percent Auto 6.8 % (2-11); Neutrophils Absolute Auto 6.8 x10*3/uL (2.0-8.3); Neutrophils Percent Auto 64.4 % (45-73); Platelet Count 265 X10*3/uL (160-400); Red Blood Count 5.22 X10*6/uL (4.60-5.80); Red Cell Distribution Width 12.6 % (11.0-16.0); White Blood Count 10.5 X10*3/uL (4.8-10.8)
[2024-07-13 10:30] LABS: Alanine Aminotransferase 15 U/L (0-40); Albumin Level 3.8 g/dL (3.5-5.0); Alkaline Phosphatase 84 U/L (39-117); Anion Gap 11 (12-20); Aspartate Amino Transferase 16 U/L (5-37); Bilirubin Total 0.5 mg/dL (0.0-1.0); Blood Urea Nitrogen 12 mg/dL (9-16); Carbon Dioxide 29 mmol/L (22-29); Chloride 108 mmol/L (96-108); Cholesterol 184 mg/dL (<200); Estimated Glomerular Filt Rate > 60; Glucose Random 70 mg/dL (60-115); HDL Cholesterol 35 mg/dL (>40); LDL Cholesterol Calculated 120 mg/dL (<100); Potassium 4.1 mmol/L (3.3-5.1); Sodium 144 mmol/L (135-145); Total Protein 6.7 g/dL (6.5-8.0); Triglycerides 148 mg/dL (<150)
[2024-07-13 10:34] LABS: Appearance Urine Clear; Color Urine Yellow; Glucose Urine UA Negative (Negative); Leukocyte Esterase Urine Negative (Negative); Nitrite Urine Negative (Negative); PH 5.5 (5.0-9.0); Specific Gravity - Urine >= 1.030 (1.005-1.025); Urine Blood Negative (Negative); Urine Ketones Trace mg/dL (Negative); Urine Protein Trace mg/dL (Neg-Trace)
[2024-07-13 10:54] LABS: Free T4 (Free Thyroxine) 1.01 ng/dL (0.71-1.85); Thyroid Stimulating Hormone 0.66 uIU/mL (0.32-4.0)
[2024-07-13 10:55] LABS: Folate 8.5 ng/mL (> or = 4.0); Prostate Specific Antigen Scr 1.38 ng/mL (<0.05-4.0); Vitamin B12 558 pg/mL (200-900)
[2024-07-17 14:13] LABS: Vitamin D 25-OH, D2 <4 ng/mL; Vitamin D 25-OH, D3 24 ng/mL; Vitamin D 25-OH, Total 24 ng/mL (30-100)
== END 2024-07-13 08:45 | disposition home or self-care (01) ==
LOC: HO.XRAY 08:44
DX: Z00.00 Encounter for general adult medical examination without abnormal findings (principal); R10.819 Abdominal tenderness, unspecified site; M54.9 Dorsalgia, unspecified; R05.9 Cough, unspecified
CPT/HCPCS: 36415; 71046; 72070; 80053; 80061; 81003; 82306; 82607; 82746; 84153; 84439; 84443; 85025

== ENCOUNTER 2024-08-02 12:18 | Outpatient (AMB) | payer OTHER, SELFPAY ==
[2024-08-02 12:37] VITALS: BP 118/71; PULSE 69; RESP 16; O2SAT 97; BMI 26.4
--- NOTE | 2024-08-02 12:37 | A.OFFVIS_ITS ---
Vital Signs 08/02/24 12:37 Height 6 ft 2 in Weight 206 lb BMI 26.4 BP 118/71 Blood Pressure Location Lt brachial Position Sitting Respiration 16 Pulse 69 Pulse Source Pulse Oximeter Pulse Oximetry (%) 97 Oxygen Delivery Method Room Air Intake Visit Reasons: Intervertebral Disc Degeneration Allergies No Known Allergies Allergy (Verified 08/02/24 12:38) Medication List - Last Reconciled 08/02/24 by Irma Caruso LPN bisacodyl 10 mg (2 x 5 mg) PO BID 30 days cetirizine 10 mg PO DAILY cholecalciferol (vitamin D3) 1,250 mcg PO QWEEK clonazepam 0.25 mg (1/2 x 0.5 mg) PO BID diclofenac sodium 1% (Voltaren Arthritis Pain) 2 grams topical QID hydroxyzine HCl 50 mg PO TID PRN lidocaine 5% 1 patch topical DAILY meloxicam 15 mg PO DAILY omeprazole 40 mg PO QAM sertraline 100 mg PO DAILY HPI HPI Intervertebral Disc Degeneration: Details: 49-year-old male who presents today to the office for evaluation of intervertebral disc degeneration. He has a history of chronic back pain for more than three months. His past medical history is notable for IBS. He previously had RVC and was receiving hydroxyzine and Klonopin for his anxiety. He was discharged from the practice in October 2023. He has previously been seeing a pain provider and received a back injection, which he found helpful. Now, at present, his symptoms are in his upper and lower back in between his shoulder blades. The pain starts in between the shoulder blades and radiates through the lower back area. It is described as 7/10 in intensity. He is unable to sleep normally. He continues to work in [employer]. Medications make it better; movements make it worse. He has done physical therapy in the past. [facility], [facility] Surgical History Hx of colonoscopy History of hernia surgery History of appendectomy History of pelvic surgery Family History Mother Cancer Father Acid reflux disease Social History Household Members: Spouse and Children Housing: House Alcohol intake: former Patient Tobacco Use Status: Former Tobacco user Tobacco use type: Cigarette Years Smoked: 15 years e-Cigarette/Vaping Use: Never Used Second Hand Smoke Exposure: No service: No Current occupational status: employed Cognitive needs: No Hearing needs: No Vision needs: Yes Review of Systems Const All systems reviewed & are unremarkable except as noted in HPI and below Physical Exam Vital Signs: Last Vital Signs Pulse 69 08/02/24 12:37 Resp 16 08/02/24 12:37 BP 118/71 08/02/24 12:37 Pulse Ox 97 08/02/24 12:37 Oxygen Delivery Method Room Air 08/02/24 12:37 BMI result Body Mass Index 26.4 General: Appears afebrile. Alert and oriented. Mood and affect appropriate. Follows and participates in conversation appropriately. Respiratory effort is unlabored. Able to transition from sit to stand unassisted. Ambulates with bilaterally normal heel strike and toe off. Lumbar extension reproduces pain. Cervical extension also reproduces pain. Cervical?flexion?and?also?reproduces?pain. Results Reviewed Results Reviewed: No imaging is available for review. Assessment & Plan Assessment & Plan (1) Cervical spondylosis: Code(s): M47.812 - Spondylosis without myelopathy or radiculopathy, cervical region Category: Medical (2) Lumbar spondylosis: Code(s): M47.816 - Spondylosis without myelopathy or radiculopathy, lumbar region Category: Medical Plan A referral was provided to physical therapy for three months. Continue home exercises program for three months for both cervical and lumbar spondylosis. The patient will receive a call to schedule an appointment. He will continue the physical therapy exercises at home. Reviewed the MRI images of lumbar spine with the patient showing lower lumbar facet hypertrophy. No other significant from two years ago. If his pain persists despite physical therapy, we will consider trial of either RFA or PNS. Scribed for Dr. Campuzano by Ajit Decker, medical appliance maker, on 08/02/2024. I, Dr. Campuzano, have personally reviewed and agree with the information entered by the scribe. Orders: Orders PT Evaluation and Treatment 08/02/24 M47.816 - Spondylosis without myelopathy or radiculopathy, lumbar region, M47.812 - Spondylosis without myelopathy or radiculopathy, cervical region Coding Level of Care Code New Pt Level 4 (46898) Diagnoses Cervical spondylosis M47.812 Lumbar spondylosis M47.816
== END 2024-08-02 13:02 | disposition home or self-care (01) ==
PROVIDERS: PCP Internal Medicine; Visit Provider Internal Medicine
DX: M47.812 Spondylosis without myelopathy or radiculopathy, cervical region (principal); M47.816 Spondylosis without myelopathy or radiculopathy, lumbar region
CPT/HCPCS: 99204

== ENCOUNTER → 2024-08-02 12:18 | Outpatient (BNVA) | payer OTHER, SELFPAY | PROVIDERS: PCP Internal Medicine; Visit Provider Internal Medicine | DX: M47.816 Spondylosis without myelopathy or radiculopathy, lumbar region (principal); M47.812 Spondylosis without myelopathy or radiculopathy, cervical region; G89.29 Other chronic pain | CPT/HCPCS: 99202 ==

== ENCOUNTER 2024-08-31 14:06 | Outpatient (AMB) | payer OTHER, SELFPAY ==
--- NOTE | 2024-08-31 14:16 | A.OFFPSYCH_ITS ---
Intake Intake Visit Reasons: CONSULTATION [place] Miller Required: No Allergies No Known Allergies Allergy (Verified 08/02/24 12:38) Medication List - Last Reconciled 08/31/24 by Christie Olguin APRN bisacodyl 10 mg (2 x 5 mg) PO BID 30 days cetirizine 10 mg PO DAILY cholecalciferol (vitamin D3) 1,250 mcg PO QWEEK clonazepam 0.25 mg (1/2 x 0.5 mg) PO BID diclofenac sodium 1% (Voltaren Arthritis Pain) 2 grams topical QID hydroxyzine HCl 50 mg PO TID PRN lidocaine 5% 1 patch topical DAILY meloxicam 15 mg PO DAILY omeprazole 40 mg PO QAM sertraline 100 mg PO DAILY HPI- Psychiatric Chief Complaint: CONSULTATION HPI Narrative: Patient was referred by his primary care physician for evaluation of anxiety and depression. The patient had been at [facility] for several years however he was discharged after missing appointments with his therapist because his phone was not working delay. The call would go directly to [employer] and he would try to call back and could not reach anyone. 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 He had been taking sertraline 100 mg daily at [facility] hydroxyzine 50 mg 3 times a day as needed and clonazepam 0.5 mg twice a day for anxiety and depression he reports it was working well he had no side effects. He has been without medication for several months he has been using smaller amounts to stretch it out but it has been inadequate his PHQ-9 = 18 and his LISANDRA-7 = 21. Patient states he has been struggling with depression and anxiety since age of 10 he tried to kill himself many times as a teenager says he came from a broken family was very difficult he did very poorly in school got kicked out of school in the 8th grade he would frequently blackout as a child and become angry and [id number]. [place] had [place] has not and s uicidal since. Past Psychiatric History: Patient reports at least 5 inpatient hospitalizations when he was younger the last time being 10 years ago at [facility] for suicidal ideation Subjective Subjective Subjective Medication Compliance: Yes Side effects from medications: No Review of Systems Medical Review of Systems: unchanged Mental Status Exam Mental Status Exam Patient Appearance: Well Grooomed and Appropriate Patient Orientation: Person, Place, Time and Situation Level of Consciousness: Awake and Alert Patient Behavior: Appropriate, Cooperative and Anxious Mood Description: Appropriate and Anxious Affect Description: Appropriate and Anxious Patient Cognition Impaired: No Ability to Follow Directions: Good Speech Pattern: Clear and Appropriate Memory Description: Intact Hallucinations: None Delusions: Not Present Thought Process: Intact Thought Content: positive for Intact Judgement: Good Assessment and Plan Assessment & Plan (1) Generalized anxiety disorder with panic attacks: Status: Acute Code(s): F41.1 - Generalized anxiety disorder; F41.0 - Panic disorder [episodic paroxysmal anxiety] (2) Major depressive disorder, recurrent, moderate: Status: Acute Code(s): F33.1 - Major depressive disorder, recurrent, moderate Plan continue zoloft 100mg daily continue hydroxyzine 50 mg tid prn anxiety continue clonazepam 0.5mg BID follow up with PCP and therapy Medications: Changed From clonazepam [place] 0.25 mg (1/2 x 0.5 mg) PO BID 60 tabs 0RF To clonazepam [place] 0.5 mg PO BID 60 tabs 3RF Refilled cholecalciferol (vitamin D3) 1,250 mcg PO QWEEK 14 caps 1RF Counseling and coordination of Care Pt. Self Management counseling: Maintenance-social rhythm, Mod caffeine/ETOH intake, Sleep hygiene, Behavior activation, General coping skills and Problem solving Medication management counseling: Effectiveness, Side effects, Dosing range, Duration, Drug interaction, Adherence and Other (safety re:monitoring sedation and staying hydrated ) Diagnosis and Prognosis Counseling: Accuracy of diagnosis, Prognosis over time, Impact of diagnosis on life functions, Impact of family relationship and Adequacy of current interventions Details: I spent 75 minutes reviewing the record, seeing the patient and documenting in the medical record. Counseling provided to the patient/caregiver as outlined below. Addressed patient/caregiver concerns regarding current medication regime including effective adherence. Addressed patient/caregiver concerns regarding diagnosis and prognosis including accuracy of diagnosis, prognosis over time, impact of diagnosis. Addressed patient/caregiver concerns regarding impact of recent stressors. PFSH Surgical History Hx of colonoscopy History of hernia surgery History of appendectomy History of pelvic surgery Family History Mother Cancer Father Acid reflux disease Social History Household Members: Spouse and Children Housing: House Alcohol intake: former Patient Tobacco Use Status: Former Tobacco user Tobacco use type: Cigarette Years Smoked: 15 years e-Cigarette/Vaping Use: Never Used Second Hand Smoke Exposure: No service: No Current occupational status: employed Cognitive needs: No Hearing needs: No Vision needs: Yes Social History: Patient is and has 3 children he lives with his and 3 children ages [id number]. He were full-time as a [employer]. [employer] with his family. He has good support. He grew up in [place] with his mother and stepfather 1 brother and 3 sisters he says that his childhood was very difficult he was kicked out of school in 8th grade he had his 1st child when he was age 14 he came to [place] in 1994 he has been with his for 20 years they 10 years ago Substance History: Patient uses THC approximately once a week no other street drugs no alcohol no tobacco Trauma History: Yes childhood Coding Level of Care Code Psych Diag Eval w/Med (33897) Diagnoses Generalized anxiety disorder with panic attacks F41.1; F41.0 Major depressive disorder, recurrent, moderate F33.1
== END 2024-08-31 15:17 | disposition home or self-care (01) ==
LOC: HO.HOP 14:06
PROVIDERS: PCP Internal Medicine; Visit Provider Clinical Nurse Specialist Psychiatric/Mental Health
DX: F41.1 Generalized anxiety disorder (principal); F41.0 Panic disorder [episodic paroxysmal anxiety]; F33.1 Major depressive disorder, recurrent, moderate
CPT/HCPCS: 90792

== ENCOUNTER → 2024-08-31 14:06 | Outpatient (BNVA) | payer OTHER, SELFPAY | PROVIDERS: PCP Internal Medicine; Visit Provider Clinical Nurse Specialist Psychiatric/Mental Health | DX: F33.1 Major depressive disorder, recurrent, moderate (principal); F41.1 Generalized anxiety disorder; F41.0 Panic disorder [episodic paroxysmal anxiety] | CPT/HCPCS: 90792 ==

== ENCOUNTER 2024-09-21 15:42 | Outpatient (AMB) | payer OTHER, SELFPAY ==
[2024-09-21 15:47] VITALS: BP 116/70; PULSE 86; O2SAT 97; BMI 26.2
--- NOTE | 2024-09-21 15:47 | MHC.PC.OV ---
Vital Signs 09/21/24 15:47 Height 6 ft 2 in Weight 204 lb BMI 26.2 BP 116/70 Blood Pressure Location Lt brachial Position Sitting Pulse 86 Pulse Source Pulse Oximeter Pulse Oximetry (%) 97 Oxygen Delivery Method Room Air Intake Visit Reasons: Lower Back Pain Document Analyst Required: No Allergies No Known Allergies Allergy (Verified 09/21/24 15:47) Tobacco use date assessed: 06/11/24 Dental Screening Dental Screen Date: 06/11/24 HPI Lower Back Pain HPI Details 49-year-old overweight male with a history of GERD, panic attacks irritable bowel syndrome lumbar degenerative disc disease coming in for follow-up. Since last seen in July for physical exam. Patient follows up with Psychiatry August 31 2024. presently on Zoloft, hydroxyzine clonazepam.. Patient has also seen pain management August 02 2024 for the low back pain diagnosis of cervical spondylosis and lumbar spondylosis advised physical therapy patient had an x-ray done on the chest revealing chronic fracture of the right posterolateral 8th rib with callus formation thoracic spine with mild degenerative disc problem. [facility] Medical History (Updated 09/21/24 @ 16:10 by Harrison Deutsch MD) Small intestinal bacterial overgrowth H/O fracture of pelvis Panic attacks Onychomycosis Ingrown toenail of both feet Frequency of micturition Back pain Cough Suprapubic tenderness Depression Surgical History Hx of colonoscopy History of hernia surgery History of appendectomy History of pelvic surgery Family History Mother Cancer Father Acid reflux disease Social History Household Members: Spouse and Children Housing: House Alcohol intake: former Patient Tobacco Use Status: Former Tobacco user Tobacco use type: Cigarette Years Smoked: 15 years e-Cigarette/Vaping Use: Never Used Second Hand Smoke Exposure: No service: No Current occupational status: employed Cognitive needs: No Hearing needs: No Vision needs: Yes Questionnaire Thrive Questionnaire Date Thrive assessed: 07/10/24 I am a: Patient What is your living situation today?: I have a steady place to live Within the past 12 months, did the food you bought not last and you didn't have the money to get more?: Never true Within the past 12 months, did you worry whether your food would run out before you got money to buy more?: Never true Do you have trouble paying for medicines?: No Do you have trouble getting transportation to medical appointments?: No Do you have trouble paying your heating and electricity bill?: No Do you have trouble taking care of your child, family member or friend?: No Do you have trouble with day-to-day activities such as bathing, preparing meals, shopping, managing finances, etc.?: Yes Are you currently unemployed and looking for a job?: No Are you interested in more education?: No Please select the resources that you would like help with: None Currently or been in a relationship where the following occur: No concerns reported THRIVE Score: 0 AUDIT C Alcohol Use Questionnaire (AUDIT-C) 1. How often do you have a drink containing alcohol?: Never 3. How often do you have six or more drinks on one occasion?: Never Total Score: 0 LISANDRA-7 AMB Questionnaire LISANDRA-7 Date LISANDRA - 7 assessed: 06/11/24 Source: Developed by Drs. Torey Isbell, Pippa Costello, Baldev Quintana and colleagues, with an educational isiah from [employer]. Physical exam (Primary Care) Vital Signs: Last Vital Signs Pulse 86 09/21/24 15:47 BP 116/70 09/21/24 15:47 Pulse Ox 97 09/21/24 15:47 Oxygen Delivery Method Room Air 09/21/24 15:47 BMI result Body Mass Index 26.2 Tobacco/Smoking Status: Tobacco use Status Tobacco use date assessed 06/11/24 09/21/24 15:48 Patient Tobacco Use Status Former Tobacco user 09/21/24 15:48 Tobacco use type Cigarette 09/21/24 15:48 e-Cigarette/Vaping Use Never Used 09/21/24 15:48 Thrive Assessment: Date of Thrive Assessment Date Thrive assessed 07/10/24 09/21/24 15:48 Currently or been in a relationship where the following occur: No concerns reported Const General: alert; No acute distress Eyes Conjunctivae: conjunctivae normal Resp Auscultation: clear to auscultation bilaterally Cardio Rate: regular rate Rhythm: regular rhythm GI Inspection: Yes normal to inspection Extrem General: Yes normal to inspection and No edema Coding Level of Care Code Est Pt Level 4 (47430) Diagnoses Generalized anxiety disorder with panic attacks F41.1; F41.0 Major depressive disorder, recurrent, moderate F33.1 Gastroesophageal reflux disease without esophagitis K21.9 Esophagitis presence: without esophagitis Degenerative disc disease at L5-S1 level M51.37 Vitamin D deficiency E55.9 Assessment & Plan Assessment & Plan (1) Generalized anxiety disorder with panic attacks: Code(s): F41.1 - Generalized anxiety disorder; F41.0 - Panic disorder [episodic paroxysmal anxiety] Category: Medical Plan: Continue to follow-up with psychiatry on treatment (2) Major depressive disorder, recurrent, moderate: Code(s): F33.1 - Major depressive disorder, recurrent, moderate Category: Medical Plan: Continue to follow-up with psychiatry and treatment (3) GERD (gastroesophageal reflux disease): Code(s): K21.9 - Gastro-esophageal reflux disease without esophagitis Category: Medical Qualifiers: Esophagitis presence: without esophagitis Qualified Code(s): K21.9 - Gastro-esophageal reflux disease without esophagitis Plan: Avoid the foods that causes that usually spicy foods, tomato products, juices, coffee, soda and foods that your sensitive to. After eating do not lie down, allow 3-4 hours before in lie down. And keep the head of bed above 30 degrees to avoid the acid from going up. (4) Degenerative disc disease at L5-S1 level: Code(s): M51.37 - Other intervertebral disc degeneration, lumbosacral region Category: Medical Plan: Patient was seen by pain management and has been advised physical therapy (5) Vitamin D deficiency: Code(s): E55.9 - Vitamin D deficiency, unspecified Category: Medical Plan: vitamin D [id number] u once a day Medications: New cyclobenzaprine 10 mg PO TID PRN 30 tabs 0RF muscle spasm M51.37 - Other intervertebral disc degeneration, lumbosacral region
== END 2024-09-21 16:46 | disposition home or self-care (01) ==
PROVIDERS: Visit Provider Internal Medicine
DX: F41.1 Generalized anxiety disorder (principal); F41.0 Panic disorder [episodic paroxysmal anxiety]; F33.1 Major depressive disorder, recurrent, moderate; K21.9 Gastro-esophageal reflux disease without esophagitis; M51.37 Other intervertebral disc degeneration, lumbosacral region; E55.9 Vitamin D deficiency, unspecified; Z23 Encounter for immunization

== ENCOUNTER → 2024-09-21 15:42 | Outpatient (BNVA) | payer OTHER, SELFPAY | PROVIDERS: Visit Provider Internal Medicine | DX: Z23 Encounter for immunization (principal); F41.1 Generalized anxiety disorder; F41.0 Panic disorder [episodic paroxysmal anxiety]; F33.1 Major depressive disorder, recurrent, moderate; K21.9 Gastro-esophageal reflux disease without esophagitis; E55.9 Vitamin D deficiency, unspecified | CPT/HCPCS: 90471; 90656; 99212 ==

== ENCOUNTER 2024-10-12 08:09 | Outpatient (AMB) | payer OTHER, SELFPAY ==
[2024-10-12 08:12] VITALS: BP 110/72; PULSE 101; O2SAT 98; BMI 25.0
--- NOTE | 2024-10-12 08:12 | A.OFFPC_ITS ---
Vital Signs 10/12/24 08:12 Height 6 ft 2 in Weight 195 lb 0.6 oz BMI 25.0 BP 110/72 Blood Pressure Location Lt brachial Position Sitting Pulse 101 H Pulse Source Pulse Oximeter Pulse Oximetry (%) 98 Oxygen Delivery Method Room Air Intake Visit Reasons: 3 mth f/u Allergies No Known Allergies Allergy (Verified 10/12/24 08:13) Medication List - Last Reconciled 10/12/24 by Cassidy Murcia PA-C bisacodyl 10 mg (2 x 5 mg) PO BID 30 days cetirizine 10 mg PO DAILY cholecalciferol (vitamin D3) 1,250 mcg PO QWEEK clonazepam 0.5 mg PO BID cyclobenzaprine 10 mg PO TID PRN diclofenac sodium 1% (Voltaren Arthritis Pain) 2 grams topical QID hydroxyzine HCl 50 mg PO TID PRN lidocaine 5% 1 patch topical DAILY meloxicam 15 mg PO DAILY omeprazole 40 mg PO QAM sertraline 100 mg PO DAILY Tobacco use date assessed: 06/11/24 Dental Screening Dental Screen Date: 06/11/24 Did you have a dental visit in the last 12 months?: Yes Did you have a dental problem in the last 6 months where you did not have access to dental care?: No Was dental information given to patient?: Patient has dentist HPI 3 mth f/u HPI Details 48-year-old male with past medical histo ry of panic attacks, GERD and constipation last seen by Dr. Deutsch coming in for follow up. In review of the notes patient was seen by outpatient psych clinic 08/31/2024 advised to continue on Zoloft, hydroxyzine and clonazepam. Patient states his back has been feeling okay it is better with working and worsens when he sits still for long periods of time. He has not started physical therapy and states he does not want to. He feels like his depression and anxiety has been stable and has discontinued sertraline and hydroxyzine due to appetite changes. He does want to follow with a counselor and has found 1 in [place] that is taking new patients. He also mentions he had pain and swelling over the right lower aspect of his jaw he had penicillin at home and took penicillin twice daily for 5 days and states it initially improved but has returned. [facility] Medical History Small intestinal bacterial overgrowth H/O fracture of pelvis Panic attacks Onychomycosis Ingrown toenail of both feet Frequency of micturition Back pain Cough Suprapubic tenderness Depression Surgical History Hx of colonoscopy History of hernia surgery History of appendectomy History of pelvic surgery Family History Mother Cancer Father Acid reflux disease Social History Household Members: Spouse and Children Housing: House Alcohol intake: former Patient Tobacco Use Status: Former Tobacco user Tobacco use type: Cigarette Years Smoked: 15 years e-Cigarette/Vaping Use: Never Used Second Hand Smoke Exposure: No service: No Current occupational status: employed Cognitive needs: No Hearing needs: No Vision needs: Yes Questionnaire Thrive Questionnaire Date Thrive assessed: 07/10/24 I am a: Patient What is your living situation today?: I have a steady place to live Within the past 12 months, did the food you bought not last and you didn't have the money to get more?: Never true Within the past 12 months, did you worry whether your food would run out before you got money to buy more?: Never true Do you have trouble paying for medicines?: No Do you have trouble getting transportation to medical appointments?: No Do you have trouble paying your heating and electricity bill?: No Do you have trouble taking care of your child, family member or friend?: No Do you have trouble with day-to-day activities such as bathing, preparing meals, shopping, managing finances, etc.?: Yes Are you currently unemployed and looking for a job?: No Are you interested in more education?: No Please select the resources that you would like help with: None Currently or been in a relationship where the following occur: No concerns reported THRIVE Score: 0 AUDIT C Alcohol Use Questionnaire (AUDIT-C) 1. How often do you have a drink containing alcohol?: Never 3. How often do you have six or more drinks on one occasion?: Never Total Score: 0 LISANDRA-7 AMB Questionnaire LISANDRA-7 Date LISANDRA - 7 assessed: 06/11/24 Source: Developed by Drs. Torey Isbell, Pippa Costello, Baldev Quintana and colleagues, with an educational isiah from [employer]. Review of Systems Const Denies body aches, Denies chills, Denies fever(s), Denies headache(s) and Denies poor appetite Eyes Reports no additional complaints ENT Denies dysphagia, Denies dizziness, Denies headache(s) and Denies odynophagia Card Denies chest pain, Denies syncope, Denies edema, Denies irregular heart rhythm, Denies lightheadedness and Denies dyspnea Resp Denies cough and Denies dyspnea GI Denies abdominal pain, Denies constipation, Denies dysphagia, Denies diarrhea, Denies nausea, Denies odynophagia and Denies vomiting Reports no additional complaints Musc Reports no additional complaints and Denies abnormal gait Skin/Breast Reports system reviewed and no additional complaints, except as documented Neuro Denies abnormal gait, Denies dizziness, Denies syncope and Denies headache(s) Psych Reports no additional complaints Physical exam (Primary Care) Vital Signs: Oxygen Delivery Method Room Air 10/12/24 08:12 BMI result Body Mass Index 25.0 Tobacco/Smoking Status: Tobacco use Status Tobacco use date assessed 06/11/24 09/21/24 15:48 Patient Tobacco Use Status Former Tobacco user 09/21/24 15:48 Tobacco use type Cigarette 09/21/24 15:48 e-Cigarette/Vaping Use Never Used 09/21/24 15:48 Thrive Assessment: Date of Thrive Assessment Date Thrive assessed 07/10/24 09/21/24 15:48 Currently or been in a relationship where the following occur: No concerns reported Const General: cooperative, healthy appearing, comfortable and no acute distress Orientation/consciousness: patient oriented x3 HENMT Other: tenderness to palpation of right lower jaw without surrounding erythema or warmth Head: Yes normocephalic Ears: hearing grossly normal bilaterally General nose exam: Normal external nose present Mouth: Normal oral and palatal mucosa present Teeth and gingiva: dentition normal Throat: Yes posterior oropharynx normal Eyes General: appearance normal, both eyes and all related structures Conjunctivae: conjunctivae normal Neck Neck: Yes full ROM and Yes no lymphadenopathy Resp Effort & Inspection: normal respiratory effort Auscultation: clear to auscultation bilaterally, no crackles, no rales, no rhonchi and no wheezes Cardio Rate: regular rate Rhythm: regular rhythm Skin General skin exam: no rashes or lesions noted Neuro General: patient oriented x3 Gait exam (Neuro): Normal gait present Extrem General: Yes normal to inspection, Yes full ROM and No edema Psych Affect: normal affect Attitude: cooperative Insight: Good insight present (Psych) Judgement: Good judgement present (Psych) Coding Level of Care Code Est Pt Level 4 (43844) Diagnoses Major depressive disorder, recurrent, moderate F33.1 Gastroesophageal reflux disease without esophagitis K21.9 Esophagitis presence: without esophagitis Degenerative disc disease at L5-S1 level M51.37 Generalized anxiety disorder with panic attacks F41.1; F41.0 Periodontal disease K05.6 Assessment & Plan Assessment & Plan (1) Major depressive disorder, recurrent, moderate: Code(s): F33.1 - Major depressive disorder, recurrent, moderate Category: Medical Plan: Seen by outpatient psych clinic and referred to counseling. Advised by psych clinic to continue on clonazepam, hydroxyzine and sertraline. (2) GERD (gastroesophageal reflux disease): Code(s): K21.9 - Gastro-esophageal reflux disease without esophagitis Category: Medical Qualifiers: Esophagitis presence: without esophagitis Qualified Code(s): K21.9 - Gastro-esophageal reflux disease without esophagitis Plan: Avoid trigger foods such as citrus, tomato products, soda, caffeine, spicy foods and other foods that may be irritating to your stomach. Avoid laying flat 3-4 hours after eating and elevate the head of the bed 30 degrees to prevent acid from moving into the esophagus. (3) Degenerative disc disease at L5-S1 level: Code(s): M51.37 - Other intervertebral disc degeneration, lumbosacral region Category: Medical Plan: Patient has been seen and evaluated by pain management advised physical therapy. (4) Generalized anxiety disorder with panic attacks: Code(s): F41.1 - Generalized anxiety disorder; F41.0 - Panic disorder [episodic paroxysmal anxiety] Category: Medical Plan: Continue to follow with Psychiatry, counseling referral placed continue on current medication (5) Periodontal disease: Code(s): K05.6 - Periodontal disease, unspecified Category: Medical Plan: Patient has right-sided jaw tenderness and swelling was taking penicillin and swelling went down but has run out of these pills and swelling has returned. We will treat with Augmentin b.i.d. for 7 days and advised patient to follow up with dentist. Plan This note was constructed using voice recognition software. While every effort has been made to ensure accuracy and call center assistant, still areas may have been included sometimes these areas may affect the content or meeting of the given symptoms. Total time spent caring for the patient today was 20 minutes. This includes time spent before the visit reviewing the chart, time spent during the visit, and time spent after the visit and documentation. Medications: New amoxicillin-pot clavulanate 875-125 mg 1 tab PO BID 7 days 14 tabs 0RF
== END 2024-10-12 08:55 | disposition home or self-care (01) ==
DX: F33.1 Major depressive disorder, recurrent, moderate (principal); K21.9 Gastro-esophageal reflux disease without esophagitis; M51.379 Other intervertebral disc degeneration, lumbosacral region without mention of lumbar back pain or lower extremity pain; F41.1 Generalized anxiety disorder; F41.0 Panic disorder [episodic paroxysmal anxiety]; K05.6 Periodontal disease, unspecified

== ENCOUNTER → 2024-10-12 08:09 | Outpatient (BNVA) | payer OTHER, SELFPAY | DX: F33.1 Major depressive disorder, recurrent, moderate (principal); K21.9 Gastro-esophageal reflux disease without esophagitis; M51.379 Other intervertebral disc degeneration, lumbosacral region without mention of lumbar back pain or lower extremity pain; F41.1 Generalized anxiety disorder; F41.0 Panic disorder [episodic paroxysmal anxiety]; K05.6 Periodontal disease, unspecified | CPT/HCPCS: 99212 ==

== ENCOUNTER 2025-02-02 08:52 | Outpatient (AMB) | payer OTHER, SELFPAY ==
--- NOTE | 2025-02-02 09:10 | A.OFFPC_ITS ---
Vital Signs 02/02/25 09:12 Height 6 ft 2 in Weight 188 lb 8 oz BMI 24.2 BP 132/60 Blood Pressure Location Lt brachial Position Sitting Pulse 92 Pulse Source Pulse Oximeter Temp 97.3 F Temp Source Temporal Artery Scan Pulse Oximetry (%) 98 Oxygen Delivery Method Room Air Intake Visit Reasons: medication f/u Intake Note: Patient is here to follow up on Medication review. Access Registrar Required: No Wire Winding Machine Tender: Not Required per policy Accompanied by: Self / Same As Patient Allergies No Known Allergies Allergy (Verified 02/02/25 09:16) Medication List - Last Reconciled 02/02/25 by Cassidy Murcia PA-C bisacodyl 10 mg (2 x 5 mg) PO BID 30 days cetirizine 10 mg PO DAILY cholecalciferol (vitamin D3) 1,250 mcg PO QWEEK clonazepam 0.5 mg PO BID cyclobenzaprine 10 mg PO TID PRN diclofenac sodium 1% (Voltaren Arthritis Pain) 2 grams topical QID hydroxyzine HCl 50 mg PO TID PRN lidocaine 5% 1 patch topical DAILY meloxicam 15 mg PO DAILY omeprazole 40 mg PO QAM sertraline 100 mg PO DAILY Tobacco use date assessed: 02/02/25 Dental Screening Dental Screen Date: 02/02/25 Did you have a dental visit in the last 12 months?: Yes Did you have a dental problem in the last 6 months where you did not have access to dental care?: No Was dental information given to patient?: Patient has dentist HPI medication f/u HPI Details 49-year-old male with past medical histo ry of panic attacks, GERD and constipation last seen 10/2024 coming in for follow up.? Presenting with depression and anxiety. He reports exacerbation of anxiety due to a legal conflict with a neighbor, leading to significant stress and periods of not eating for extended durations. He is currently engaging in weekly counseling sessions, which he finds moderately helpful, and waiting for a scheduled psychiatric consultation. He also endorses weight loss which he attributes to lack of appetite. Patient we will typically go several days skipping meals due to irritation or anxiety. [facility] Medical History Small intestinal bacterial overgrowth H/O fracture of pelvis Panic attacks Onychomycosis Ingrown toenail of both feet Frequency of micturition Back pain Cough Suprapubic tenderness Depression Surgical History Hx of colonoscopy History of hernia surgery History of appendectomy History of pelvic surgery Family History Mother Cancer Father Acid reflux disease Social History Household Members: Spouse and Children Housing: House Alcohol intake: former Patient Tobacco Use Status: Former Tobacco user Tobacco use type: Cigarette Years Smoked: 15 years e-Cigarette/Vaping Use: Never Used Second Hand Smoke Exposure: Yes service: No Current occupational status: employed Cognitive needs: No Hearing needs: No Vision needs: Yes Questionnaire PHQ-9 Over the last 2 weeks, how often have you been bothered by any of the following problems? 1. Little interest or pleasure in doing things: not at all 2. Feeling down, depressed, or hopeless: not at all 3. Trouble falling or staying asleep, or sleeping too much: not at all 4. Feeling tired or having little energy: not at all 5. Poor appetite or overeating: not at all 6. Feeling bad about yourself - or that you are a failure or have let yourself or your family down: not at all 7. Trouble concentrating on things, such as reading the newspaper or watching television: not at all 8. Moving or speaking so slowly that other people could have noticed. Or the opposite - being so fidgety or restless that you have been moving around a lot more than usual: not at all 9. Thoughts that you would be better off or of hurting yourself in some way: not at all Total score: 0 Depression Screening Interpretation: Negative Depression Screening Done: Yes Source: Developed by Drs. Torey Isbell, Pippa Costello, Baldev Quintana and colleagues, with an educational isiah from [employer]. Thrive Questionnaire Date Thrive assessed: 02/02/25 AUDIT C Alcohol Use Questionnaire (AUDIT-C) 1. How often do you have a drink containing alcohol?: Never Total Score: 0 LISANDRA-7 AMB Questionnaire LISANDRA-7 Date LISANDRA - 7 assessed: 02/02/25 Feeling nervous, anxious, or on edge: 3 = Nearly every day Not being able to stop or control worryin = Nearly every day Worrying too much about different things: 3 = Nearly every day Trouble relaxin = Nearly every day Being so restless that it is hard to sit still: 3 = Nearly every day Becoming easily annoyed or irritable: 3 = Nearly every day Feeling afraid as if something awful might happen: 3 = Nearly every day Total LISANDRA-7 score (0-4 normal; 5-9 mild; 10-14 moderate; 15-21 severe): 21 Source: Developed by Drs. Torey Isbell, Pippa Costello, Bladev Quintana and colleagues, with an educational isiah from [employer]. Review of Systems Const Denies body aches, Denies chills, Denies fever(s), Denies headache(s), Reports poor appetite and Reports weight loss Eyes Reports no additional complaints ENT Denies dizziness and Denies headache(s) Card Denies chest pain, Denies lightheadedness and Denies dyspnea Resp Denies cough and Denies dyspnea GI Reports no additional complaints Reports no additional complaints Musc Reports no additional complaints and Denies abnormal gait Skin/Breast Reports system reviewed and no additional complaints, except as documented Neuro Denies abnormal gait, Denies dizziness and Denies headache(s) Psych Reports no additional complaints Physical exam (Primary Care) Vital Signs: Last Vital Signs Temp 97.3 F 02/02/25 09:12 Pulse 92 02/02/25 09:12 BP 132/60 02/02/25 09:12 Pulse Ox 98 02/02/25 09:12 Oxygen Delivery Method Room Air 02/02/25 09:12 BMI result Body Mass Index 24.2 Tobacco/Smoking Status: Tobacco use Status Tobacco use date assessed 02/02/25 02/02/25 09:11 Patient Tobacco Use Status Former Tobacco user 02/02/25 09:11 Tobacco use type Cigarette 02/02/25 09:11 e-Cigarette/Vaping Use Never Used 02/02/25 09:11 PHQ-9: PHQ-9 Score PHQ-9: Total score 0 02/02/25 09:16 Depression Screening Interpretation: Negative Thrive Assessment: Date of Thrive Assessment Date Thrive assessed 02/02/25 02/02/25 09:11 Const General: cooperative, healthy appearing, comfortable and no acute distress Orientation/consciousness: patient oriented x3 HENMT Head: Yes normocephalic Ears: hearing grossly normal bilaterally General nose exam: Normal external nose present Eyes General: appearance normal, both eyes and all related structures Conjunctivae: conjunctivae normal Neck Neck: Yes full ROM and Yes no lymphadenopathy Resp Effort & Inspection: normal respiratory effort Auscultation: clear to auscultation bilaterally, no crackles, no rales, no rhonchi and no wheezes Cardio Rate: regular rate Rhythm: regular rhythm Skin General skin exam: no rashes or lesions noted Neuro General: patient oriented x3 Gait exam (Neuro): Normal gait present Extrem General: Yes normal to inspection, Yes full ROM and No edema Psych Affect: normal affect Attitude: cooperative Insight: Good insight present (Psych) Judgement: Good judgement present (Psych) Coding Level of Care Code Est Pt Level 3 (11430) Diagnoses Major depressive disorder, recurrent, moderate F33.1 Generalized anxiety disorder with panic attacks F41.1; F41.0 Gastroesophageal reflux disease without esophagitis K21.9 Esophagitis presence: without esophagitis Assessment & Plan Assessment & Plan (1) Major depressive disorder, recurrent, moderate: Comment: [facility] weekly Code(s): F33.1 - Major depressive disorder, recurrent, moderate Category: Medical Plan: I will continue the prescription of clonazepam, emphasizing the need for regular three-month evaluations. The community navigator will engage with the patient to provide additional support. The upcoming psychiatric evaluation is crucial for ongoing management. To address his poor appetite, I recommended incorporating nutritional supplements like Ensure. It is vital the patient attends his p sychiatric consultation to explore further treatment options. He has been assured of the voluntary nature of any invasive psychiatric treatments. Regular counseling sessions should continue weekly. (2) Generalized anxiety disorder with panic attacks: Code(s): F41.1 - Generalized anxiety disorder; F41.0 - Panic disorder [episodic paroxysmal anxiety] Category: Medical Plan: See above plan for depression (3) GERD (gastroesophageal reflux disease): Code(s): K21.9 - Gastro-esophageal reflux disease without esophagitis Category: Medical Qualifiers: Esophagitis presence: without esophagitis Qualified Code(s): K21.9 - Gastro-esophageal reflux disease without esophagitis Plan: Avoid trigger foods such as citrus, tomato products, soda, caffeine, spicy foods and other foods that may be irritating to your stomach. Avoid laying flat 3-4 hours after eating and elevate the head of the bed 30 degrees to prevent acid from moving into the esophagus. Plan This note was constructed using voice recognition software. While every effort has been made to ensure accuracy and campaign specialist, still areas may have been included sometimes these areas may affect the content or meeting of the given symptoms. Total time spent caring for the patient today was 20 minutes. This includes time spent before the visit reviewing the chart, time spent during the visit, and time spent after the visit and documentation. Patient was informed and verbally consented to the use of an ambient scribe for clinic note documentation during this visit. Medications: Refilled clonazepam [place] 0.5 mg PO BID 60 tabs 3RF
[2025-02-02 09:12] VITALS: BP 132/60; PULSE 92; TEMP 36.3; O2SAT 98; BMI 24.2
--- OUTSIDE RECORDS SUMMARY | 2025-02-02 09:40 | XMS_ITS | Clinical Summary ---
Author Organization [facility] Address [address] [place] [address] Care Team Providers Care Production Expediter Name Role Phone Crescencio Allen MD Primary Care Provider [phone] Medical History Medical History Date Comments Constipation 05/21/2023 DX:Constipation GERD (gastroesophageal reflux disease) 05/21/2023 DX:GERD (gastroesophageal reflux disease) Onychomycosis 05/21/2023 DX:Onychomycosis Ingrowing nail 05/21/2023 DX:Ingrowing yaz l Social History Tobacco Use Types Packs/Day Years Used Date Smoking Tobacco: Never Assessed Sex and Gender Information Value Date Recorded Sex Assigned at Not on file Legal Sex Male 9:07 AM EST Gender Identity Not on file Sexual Orientation Not on file Obstetrics History Last Filed Vital Signs Vital Sign Reading Time Taken Comments Blood Pressure - - Pulse - - Temperature - - Respiratory Rate - - Oxygen Saturation - - Inhaled Oxygen Concentration - - Weight 87.1 kg (192 lb) 06/05/2023 3:19 PM EDT Height 188 cm (6' 2 ) 06/05/2023 3:19 PM EDT Body Mass Index 24.65 06/05/2023 3:19 PM EDT Plan of Treatment Health Maintenance Due Date Last Done Comments DTaP,Tdap,and Td Vaccines (1 - Tdap) 1992 Hepatitis B Vaccines (1 of 3 - 19+ 3-dose series) 1992 Cholesterol Screening (Lipid Panel) 10/13/2022 Colorectal Cancer Screening: Colonoscopy 10/13/2022 Depression Screening 10/13/2022 HIV Screening 10/13/2022 Hepatitis C Screening 10/13/2022 Social Influencers of Health Screening 10/13/2022 Pneumococcal Vaccine: 50+ Ye ars (1 of 1 - PCV) 2023 Zoster Vaccines (1 of 2) 2023 COVID-19 Vaccine (1 - 2023-2 5 season) 2024 Influenza Vaccine (#1) 2024 HIB Vaccines Aged Out No longer eligi ble based on patient's age to complete this topic HPV Vaccines Aged Out No longer eligi ble based on patient's age to complete this topic Hepatitis A Vaccines Aged Out No long er eligible based on patient's age to complete this topic IPV Vaccines Aged Out No longer eligi ble based on patient's age to complete this topic MMR Vaccines Aged Out No longer eligi ble based on patient's age to complete this topic Meningococcal ACWY Vaccine Aged Out N o longer eligible based on patient's age to complete this topic Meningococcal B Vacine Aged Out No lo nger eligible based on patient's age to complete this topic Pneumococcal Vaccine: Pediat rics (0 to 5 Years) and At-Risk Patients (6 to 64 Years) Aged Out No longer eligible b ased on patient's age to complete this topic RSV Immunization Patients Un marline 20 months Aged Out No longer eligible b ased on patient's age to complete this topic Varicella Vaccines Aged Out No longer eligible based on patient's age to complete this topic Care Teams Production Expediter Relationship Specialty Start Date End Date Crescencio Allen MD [id number] [place] [address] PCP - General 12/14/21
--- OUTSIDE RECORDS SUMMARY | 2025-02-02 09:40 | XMS_ITS | Clinical Summary ---
Author Organization [facility] Address [address] [place] [address] Care Team Providers Care Health Outcomes Liaison Name Role Phone Ana Bajwa PA-C Primary Care Provider Source Comments PLEASE NOTE, if this patient is a minor, it may be UNLAWFUL to discuss sensitive information that is contained in these records (such as FAMILY PLANNING, MENTAL HEALTH or SUBSTANCE ABUSE) with the minor patient's parent or other person without the patient's specific authorization.[facility] Allergies No known active allergies Medications cetirizine (ZYRTEC) 10 mg tabletIndication s:Seasonal allergies Take 1 Tab by mouth once daily 30 Tab 11 0 Active bisacodyL (DULCOLAX) 5 mg EC tabletIndication s:Slow transit constipation TAKE 1 TABLET BY MOUTH EVERY DAY 90 Tab 3 0 Active hydrocortisone (ANUSOL-HC) 2.5 % topical creamIndications :Acute hemorrhoid Place rectally 2 (two) times daily NEEDED FOR ACUTE HEMORRHOIDS 2 Tube 5 0 Active omeprazole (PRILOSEC) [address] capsuleIndicatio ns:Gastroesophag eal reflux disease without esophagitis Take 1 Cap by mouth every morning before breakfast 90 Cap 1 0 Active polyethylene glycol 3350 17 gram packetIndication s:Slow transit constipation Take 17 g by mouth once daily 30 Each 5 0 Active sucralfate (CARAFATE) 1 gram tabletIndication s:Gastroesophage al reflux disease without esophagitis Take 1 Tablet by mouth 2 (two) times daily 60 Tablet 2 0 Active Active Problems Problem Noted Date Diagnosed Date Flank pain 03/10/2018 Overview (03/10/2018): 03/03/2018 [facility]- CT Abdomen & Pelvis WO Cont No urinary tract calculus or obstructive uropathy by noncontrast CT analysis when compared to 12/25/2016, as clinically questioned. Acute hepatitis C virus infection without hepati c coma 12/09/2017 Overview (12/31/2018): 01/14/2018 [facility]- Us liver 1. Fatty infiltration of the liver. 2. No hepatic masses. 3. No evidence of cholelithiases or biliary obstruction. Pt referred to [facility]. Treated with medciation. Pt says she was told he is cured Constipation 11/19/2017 Gastroesophageal reflux disease without esophagi tis 12/16/2016 Pain of upper abdomen 10/21/2015 Overview (10/21/2015): [facility]-10/11/15- upper abdominal pain, chronic upper back pain - sent Home On acacia Carlson. Hernia 12/22/2013 Overview (01/11/2015): Seen at [facility] er for abd pain,ct abd- retained fecal material, post ventral hernia repair with mesh,no recurrent hernia. Elbow pain, left 12/22/2013 Gastritis 12/22/2013 Resolved Problems Problem Noted Date Diagnosed Date Resolved Date Sinusitis 02/02/2014 06/29/2021 Headache 12/22/2013 12/31/2018 Immunizations Immunization Administration Dates Next Due Flu, Preservative Free 08/20/2019,12/31/2018,08/2018 INFLUENZA, SEASONAL, INJECTABLE 11/14/2016 TDAP 11/14/2016 Family History Medical History Relation Name Comments Cancer Maternal Grandmother sarcoma Cancer Mother breast cx Relation Name Status Comments Brother Alive Father Alive Maternal Grandmother sarcoma Mother breast cx Alive Sister Alive Social History Tobacco Use Types Packs/Day Years Used Date Smoking Tobacco: Never Smokeless Tobacco: Never Alcohol Use Standard Drinks/Week Comments No 0 (1 standard drink = 0.6 oz pur e alcohol) Social Connections Answer Date Recorded Social Connections and Isolation 0 07/02/2019 Financial Resource Strain Answer Date R ecorded Financial Resource Strain 0 2018 Stress Answer Date Recorded Stress 0 07/02/2019 Physical Activity Answer Date Recorded Physical Activity 0 07/02/2019 Food Insecurity Answer Date Recorded Food 0 07/02/2019 Transportation Needs Answer Date Record ed Transportation 0 07/02/2019 Housing Stability Answer Date Recorded Housing 0 07/02/2019 Safety and Environment Answer Date Joel rded Safety 0 07/02/2019 Utilities Answer Date Recorded Utilities 0 07/02/2019 Employment Answer Date Recorded Employment 0 07/02/2019 Sex and Gender Information Value Date Recorded Sex Assigned at Male 10/15/2017 11:24 AM PST Legal Sex Male 11:36 AM PDT Gender Identity Male Sexual Orientation Don't know 10/15/2017 11 :24 AM PST Last Filed Vital Signs Vital Sign Reading Time Taken Comments Blood Pressure 122/86 11/24/2019 10:37 AM EST Pulse 80 11/24/2019 10:37 AM EST Temperature 36.8 ??C (98.3 ??F) 11/24/2019 10:[address] Respiratory Rate 18 11/24/2019 10:37 AM EST Oxygen Saturation 100% 10/15/2017 1:55 PM EST Inhaled Oxygen Concentration - - Weight 95.7 kg (211 lb) 11/24/2019 10:37 AM EST Height 188 cm (6' 2 ) 11/24/2019 10:37 AM EST Body Mass Index 27.09 11/24/2019 10:37 AM EST Plan of Treatment Not on file [facility] MEDICAID DENTAL [facility] SAFETY [facility] Care Teams Health Outcomes Liaison Relationship Specialty Start Date End Date Ana Bajwa PA-C [address] [place] [address] PCP - General FAMILY MEDICINENISSA 10/16/20
== END 2025-02-02 10:02 | disposition home or self-care (01) ==
LOC: HO.HMCH 08:52
DX: F33.1 Major depressive disorder, recurrent, moderate (principal); F41.1 Generalized anxiety disorder; F41.0 Panic disorder [episodic paroxysmal anxiety]; K21.9 Gastro-esophageal reflux disease without esophagitis

== ENCOUNTER → 2025-02-02 08:52 | Outpatient (BNVA) | payer OTHER, SELFPAY | DX: F33.1 Major depressive disorder, recurrent, moderate (principal); F41.1 Generalized anxiety disorder; F41.0 Panic disorder [episodic paroxysmal anxiety]; K21.9 Gastro-esophageal reflux disease without esophagitis | CPT/HCPCS: 99212 ==

== ENCOUNTER 2025-05-05 09:08 | Outpatient (AMB) | payer OTHER, SELFPAY ==
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
[2025-05-05 09:16] VITALS: BP 120/78; PULSE 70; TEMP 36.2; O2SAT 98; BMI 22.3
--- OUTSIDE RECORDS SUMMARY | 2025-05-05 09:57 | XMS_ITS | Clinical Summary ---
Author Organization [facility] Address [address] [place] [address] Care Team Providers Care Cook Tortilla Name Role Phone Ana Bajwa PA-C Primary [...] Date Flank pain 03/10/2018 Overview (03/10/2018): 03/03/2018 [facility]- CT Abdomen & Pelvis WO Cont No urinary tract calculus or obstructive uropathy by noncontrast CT analysis when compared to 12/25/2016, as clinically questioned. Acute hepatitis C virus infection without hepati c coma 12/09/2017 Overview (12/31/2018): 01/14/2018 [facility]- Us liver 1. Fatty infiltration of the liver. 2. No hepatic masses. 3. No evidence of cholelithiases or biliary obstruction. Pt referred to [facility]. Treated with medciation. Pt says she was told he is cured Constipation 11/19/2017 Gastroesophageal reflux disease without esophagi tis 12/16/2016 Pain of upper abdomen 10/21/2015 Overview (10/21/2015): [facility]-10/11/15- upper abdominal pain, chronic upper back pain - sent Home On acacia Carlson. Hernia 12/22/2013 Overview (01/11/2015): Seen at [facility] er for abd pain,ct abd- retained [...] 80 11/24/2019 10:37 AM EST Temperature 36.8 C (98.3 F) 11/24/2019 10:37 AM EST Respiratory Rate 18 11/24/2019 10:37 AM EST Oxygen Saturation 100% 10/15/2017 1:55 PM EST Inhaled Oxygen Concentration - - Weight 95.7 kg (211 lb) 11/24/2019 10:37 AM EST Height 188 cm (6' 2 ) 11/24/2019 10:37 AM EST Body Mass Index 27.09 11/24/2019 10:37 AM EST Plan of Treatment Not on file Insurance [place] MEDICAID DENT[place] [facility] [address] [facility] Care Teams Cook Tortilla Relationship Specialty Start Date End Date Ana Bajwa PA-C [address] [place] [address] PCP - General FAMILY MEDICINENISSA 10/16/20
== END 2025-05-05 09:47 | disposition home or self-care (01) ==
LOC: HO.HMCH 09:08
DX: F41.1 Generalized anxiety disorder (principal); F41.0 Panic disorder [episodic paroxysmal anxiety]; F33.1 Major depressive disorder, recurrent, moderate; K21.9 Gastro-esophageal reflux disease without esophagitis; R63.4 Abnormal weight loss

== ENCOUNTER → 2025-05-05 09:08 | Outpatient (BNVA) | payer OTHER, SELFPAY | DX: K21.9 Gastro-esophageal reflux disease without esophagitis (principal); K59.04 Chronic idiopathic constipation; F41.0 Panic disorder [episodic paroxysmal anxiety]; F41.1 Generalized anxiety disorder; F33.1 Major depressive disorder, recurrent, moderate; R63.4 Abnormal weight loss | CPT/HCPCS: 99212 ==

== ENCOUNTER 2025-07-19 15:30 | Outpatient (AMB) | payer OTHER, SELFPAY ==
--- NOTE | 2025-07-19 15:32 | A.OFFPC_ITS ---
Vital Signs 07/19/25 15:34 Height 5 ft 2 in Weight 175 lb 2 oz BMI 32.0 BP 100/66 Blood Pressure Location Lt brachial Position Sitting Pulse 84 Pulse Source Pulse Oximeter Pulse Oximetry (%) 97 Oxygen Delivery Method Room Air Intake Visit Reasons: PE Safety Relief Valve Technician Required: No Accompanied by: Self / Same As Patient Allergies No Known Allergies Allergy (Verified 07/19/25 15:38) Medication List - Last Reconciled 07/19/25 by Cassidy Murcia PA-C bisacodyl 10 mg (2 x 5 mg) PO BID 30 days cholecalciferol (vitamin D3) 1,250 mcg PO QWEEK clonazepam 0.5 mg PO BID cyclobenzaprine 10 mg PO TID PRN hydroxyzine HCl 50 mg PO TID PRN lidocaine 5% 1 patch topical DAILY meloxicam 15 mg PO DAILY omeprazole 40 mg PO QAM sertraline 100 mg PO DAILY Tobacco use date assessed: 07/19/25 Dental Screening Dental Screen Date: 07/19/25 Did you have a dental visit in the last 12 months?: No Did you have a dental problem in the last 6 months where you did not have access to dental care?: No Was dental information given to patient?: No HPI PE HPI Details 49-year-old male with past medical histo ry of panic attacks, GERD and constipation last seen 04/2025 coming in for annual exam. Presenting for a physical examination and follow-up on existing conditions. Anxiety Managed with psychiatric care and counseling, which the patient finds beneficial. Depression Under psychiatric care with medication, experiencing side effects such as decreased libido. Acid Reflux Managed with omeprazole, with occasional missed doses leading to symptoms. Weight Loss Attributed to stress and irregular eating habits, advised to maintain a balanced diet. PSA: due and ordered colonscopy: due 2025 vaccines: due for flu PFSH Medical History Small intestinal bacterial overgrowth H/O fracture of pelvis Panic attacks Onychomycosis Ingrown toenail of both feet Frequency of micturition Back pain Cough Suprapubic tenderness Depression Surgical History Hx of colonoscopy History of hernia surgery History of appendectomy History of pelvic surgery Family History Mother Cancer Father Acid reflux disease Social History Household Members: Spouse and Children Housing: House Alcohol intake: former Patient Tobacco Use Status: Former Tobacco user Tobacco use type: Cigarette Years Smoked: 15 years e-Cigarette/Vaping Use: Never Used Second Hand Smoke Exposure: Yes service: No Current occupational status: employed Cognitive needs: No Hearing needs: No Vision needs: Yes Questionnaire PHQ-9 Over the last 2 weeks, how often have you been bothered by any of the following problems? 1. Little interest or pleasure in doing things: not at all 2. Feeling down, depressed, or hopeless: not at all 3. Trouble falling or staying asleep, or sleeping too much: not at all 4. Feeling tired or having little energy: not at all 5. Poor appetite or overeating: not at all 6. Feeling bad about yourself - or that you are a failure or have let yourself or your family down: not at all 7. Trouble concentrating on things, such as reading the newspaper or watching television: not at all 8. Moving or speaking so slowly that other people could have noticed. Or the opposite - being so fidgety or restless that you have been moving around a lot more than usual: not at all 9. Thoughts that you would be better off or of hurting yourself in some way: not at all Total score: 0 Depression Screening Interpretation: Negative Depression Screening Done: Yes 87399 - PHQ-9 Billing: Yes Source: Developed by Drs. Torey Isbell, Pippa Costello, Baldev Quintana and colleagues, with an educational isiah from [employer]. Thrive Questionnaire Date Thrive assessed: 07/19/25 I am a: Patient What is your living situation today?: I have a steady place to live Within the past 12 months, did the food you bought not last and you didn't have the money to get more?: Never true Within the past 12 months, did you worry whether your food would run out before you got money to buy more?: Never true Do you have trouble paying for medicines?: No Do you have trouble getting transportation to medical appointments?: Yes Do you have trouble taking care of your child, family member or friend?: No Do you have trouble with day-to-day activities such as bathing, preparing meals, shopping, managing finances, etc.?: Yes Are you currently unemployed and looking for a job?: I choose not to answer this question Are you interested in more education?: I choose not to answer this question Please select the resources that you would like help with: None Currently or been in a relationship where the following occur: No concerns reported THRIVE Score: 1 AUDIT C Alcohol Use Questionnaire (AUDIT-C) 1. How often do you have a drink containing alcohol?: Never 3. How often do you have six or more drinks on one occasion?: Never Total Score: 0 LISANDRA-7 AMB Questionnaire LISANDRA-7 Date LISANDRA - 7 assessed: 07/19/25 Feeling nervous, anxious, or on edge: 3 = Nearly every day Not being able to stop or control worryin = Nearly every day Worrying too much about different things: 3 = Nearly every day Trouble relaxin = Nearly every day Being so restless that it is hard to sit still: 2 = More than half the days Becoming easily annoyed or irritable: 3 = Nearly every day Feeling afraid as if something awful might happen: 3 = Nearly every day Total LISANDRA-7 score (0-4 normal; 5-9 mild; 10-14 moderate; 15-21 severe): 20 Source: Developed by Drs. Torey Isbell, Pippa Costello, Baldev Quintana and colleagues, with an educational isiah from [employer]. LISANDRA-7 Assessment Billing LISANDRA-7 Assessment Tool: LISANDRA-7 Assessment 26778 Review of Systems Const Denies body aches, Denies fatigue, Denies fever(s), Denies frequent falls, Denies headache(s) and Denies weakness Eyes Reports no additional complaints and Denies change in vision ENT Denies dysphagia, Denies dizziness, Denies facial pain, Denies headache(s), Denies nasal congestion and Denies odynophagia Card Denies chest pain, Denies syncope, Denies irregular heart rhythm, Denies leg edema, Denies lightheadedness and Denies dyspnea Resp Denies cough and Denies dyspnea GI Denies constipation, Denies dysphagia, Denies dyspepsia, Denies diarrhea, Denies nausea, Denies odynophagia and Denies vomiting Denies dysuria, Denies urinary frequency, Denies urinary hesitancy and Denies urinary urgency Musc Denies back pain and Denies myalgias Skin/Breast Reports system reviewed and no additional complaints, except as documented Neuro Denies dizziness, Denies syncope, Denies frequent falls, Denies headache(s) and Denies weakness Psych Reports no additional complaints Endo Denies fatigue Physical exam (Primary Care) Vital Signs: Last Vital Signs Pulse 84 07/19/25 15:34 BP 100/66 07/19/25 15:34 Pulse Ox 97 07/19/25 15:34 Oxygen Delivery Method Room Air 07/19/25 15:34 BMI result Body Mass Index 32.0 Tobacco/Smoking Status: Tobacco use Status Tobacco use date assessed 07/19/25 07/19/25 15:35 Patient Tobacco Use Status Former Tobacco user 07/19/25 15:35 Tobacco use type Cigarette 07/19/25 15:35 e-Cigarette/Vaping Use Never Used 07/19/25 15:35 PHQ-9: PHQ-9 Score PHQ-9: Total score 0 07/19/25 15:44 Depression Screening Interpretation: Negative Thrive Assessment: Date of Thrive Assessment Date Thrive assessed 07/19/25 07/19/25 15:35 Currently or been in a relationship where the following occur: No concerns reported Const General: cooperative, healthy appearing, comfortable and no acute distress Orientation/consciousness: patient oriented x3 HENMT Head: Yes normocephalic Ears: hearing grossly normal bilaterally, external ears normal, TM's normal bilaterally and EAC's normal General nose exam: Normal external nose present Face and sinus: Yes normal facial exam and Yes sinuses nontender Mouth: Normal oral and palatal mucosa present and tongue normal Throat: Yes posterior oropharynx normal Eyes General: appearance normal, both eyes and all related structures Conjunctivae: conjunctivae normal Pupils: Equal, round and reactive pupils present EOM: EOMs intact bilaterally and No Nystagmus present Neck Neck: Yes normal visual inspection, Yes full ROM and Yes no lymphadenopathy Chest Chest palpation & inspection: normal inspection of the chest Resp Effort & Inspection: normal respiratory effort Auscultation: clear to auscultation bilaterally, no crackles, no rales, no rhonchi, no wheezes and breath sounds present Cardio Rate: regular rate Rhythm: regular rhythm Peripheral pulses: radial pulses present and dorsalis pedis present GI Inspection: Yes normal to inspection and No Abdominal wall edema Palpation (GI): Soft to palpation, not firm and nontender Auscultation: normal bowel sounds Rectal Exam - Male: Yes deferred General: Yes no CVA tenderness Back/Spine/Pelvis Back: no CVA tenderness Skin General skin exam: no rashes or lesions noted Neuro General: patient oriented x3 Cranial nerves: Yes Equal, round and reactive pupils present, Yes Midline tongue present, Yes Ability to bilaterally elevate shoulders present and No Nystagmus present Gait exam (Neuro): Normal gait present Extrem General: Yes normal to inspection, Yes full ROM, No no pedal edema and No edema Psych Speech and movement: Normal speech and movement present Affect: normal affect Insight: Good insight present (Psych) Judgement: Good judgement present (Psych) Coding Level of Care Code Est Pt Prev Care 40-64y(63479) Diagnoses Annual physical exam Z00.00 Generalized anxiety disorder with panic attacks F41.1; F41.0 Major depressive disorder, recurrent, moderate F33.1 Vitamin D deficiency E55.9 Irritable bowel syndrome with constipation K58.1 Tubular adenoma of colon D12.6 Gastroesophageal reflux disease without esophagitis K21.9 Esophagitis presence: without esophagitis Weight loss R63.4 Additional Codes LISANDRA-7 Assessment Billing - LISANDRA-7 Assessment Tool: LISANDRA-7 Assessment 50540 ([id number]) PHQ-9 - 87943 - PHQ-9 Billing: Yes ([id number]) Assessment & Plan Assessment & Plan (1) Annual physical exam: Code(s): Z00.00 - Encounter for general adult medical examination without abnormal findings Category: Medical Plan: Patient is overdue for blood work including PSA which was ordered today. Otherwise he is up-to-date on all recommended routine screenings and vaccinations for his age. He is interested in the flu vaccine and he will obtain this in August. Healthy diet and regular exercise is encouraged. (2) Generalized anxiety disorder with panic attacks: Comment: psych through in [facility] Tash roberson and Janeth Barron [employer] for meds Code(s): F41.1 - Generalized anxiety disorder; F41.0 - Panic disorder [episodic paroxysmal anxiety] Category: Medical Plan: Patient has been following with [facility] for psychiatry and counseling. He was recently started on sertraline and did find he had side effects this medication of headache and decreased libido. He will follow up with his psychiatrist regarding this medication issue and adjustment will be made. (3) Major depressive disorder, recurrent, moderate: Comment: [facility] weekly Code(s): F33.1 - Major depressive disorder, recurrent, moderate Category: Medical Plan: See above plan (4) Vitamin D deficiency: Code(s): E55.9 - Vitamin D deficiency, unspecified Category: Medical Plan: Continue to follow with blood work and continue on supplementation. (5) Irritable bowel syndrome with constipation: Code(s): K58.1 - Irritable bowel syndrome with constipation Category: Medical Plan: Continue to dietary modification, drink plenty of water and increase fiber intake. (6) Tubular adenoma of colon: Comment: Five years ago scope at [facility] but he was supposed to repeat in 3 so must have been large or numerous polyps., 2020 scope found only a hyperplastic polyp so repeat in 5 years 2025 Code(s): D12.6 - Benign neoplasm of colon, unspecified Category: Medical Plan: Plan for repeat colonoscopy 2025 (7) GERD (gastroesophageal reflux disease): Code(s): K21.9 - Gastro-esophageal reflux disease without esophagitis Category: Medical Qualifiers: Esophagitis presence: without esophagitis Qualified Code(s): K21.9 - Gastro-esophageal reflux disease without esophagitis Plan: Avoid trigger foods such as citrus, tomato products, soda, caffeine, spicy foods and other foods that may be irritating to your stomach. Avoid laying flat 3-4 hours after eating and elevate the head of the bed 30 degrees to prevent acid from moving into the esophagus. Continue on Omeprazole (8) Weight loss: Code(s): R63.4 - Abnormal weight loss Category: Medical Plan: Weight loss has been stable however patient continues to skip meals frequently as he gets upset and no longer wants to eat. Discussed a meal plan where he increases his protein intake NSAIDs time aside during work and home to eat meals. The patient is advised to maintain a balanced diet with adequate protein intake. Addressing stress and improving eating habits are crucial to prevent further weight loss. Plan This note was constructed using voice recognition software. While every effort has been made to ensure accuracy and inorganic chemical technician, still areas may have been included sometimes these areas may affect the content or meeting of the given symptoms. Total time spent caring for the patient today was 30 minutes. This includes time spent before the visit reviewing the chart, time spent during the visit, and time spent after the visit and documentation. Patient was informed and verbally consented to the use of an ambient scribe for clinic note documentation during this visit. Orders: Orders Vitamin D 25-OH Total Today E55.9 - Vitamin D deficiency, unspecified, Z13.21 - Encounter for screening for nutritional disorder Vitamin B12 and Folate Today E55.9 - Vitamin D deficiency, unspecified, Z13.21 - Encounter for screening for nutritional disorder TSH reflex Free T4 Today Z13.29 - Encounter for screening for other suspected endocrine disorder PSA, Ultra Sensitive Today Z12.5 - Encounter for screening for malignant neoplasm of prostate Complete Blood Count Auto Diff Today R63.4 - Abnormal weight loss, Z00.00 - Encounter for general adult medical examination without abnormal findings Comprehensive Met. Panel Today R63.4 - Abnormal weight loss, Z00.00 - Encounter for general adult medical examination without abnormal findings Lipid Panel Today Z13.220 - Encounter for screening for lipoid disorders
[2025-07-19 15:34] VITALS: BP 100/66; PULSE 84; O2SAT 97; BMI 32.0
--- OUTSIDE RECORDS SUMMARY | 2025-07-19 17:41 | XMS_ITS | Clinical Summary ---
Author Organization [facility] Address [address] [place] [address] Care Team Providers Care Family Support Specialist Name Role Phone Crescencio Allen MD Primary Care Provider [phone] Medical History Medical History Date Comments Constipation [...] Panel) 10/13/2022 Colorectal Cancer Screening: Colonoscopy 10/13/2022 HIV Screening 10/13/2022 Hepatitis C Screening 10/13/2022 Social Influencers of Health Screening 10/13/2022 Pneumococcal Vaccine: 50+ Ye ars (1 of 1 - PCV) 2023 Zoster Vaccines (1 of 2) 2023 Depression Screening 11/10/2024 COVID-19 Vaccine (2023-2 5 season) 2025 Influenza Vaccine (#1) 2025 HIB Vaccines Aged Out No longer eligi [...] age to complete this topic Meningococcal B Vaccine Aged Out No l onger eligible based on patient's age to complete this topic RSV Immunization Patients Un marline 20 months Aged Out No longer eligible b ased on patient's age to complete this topic Varicella Vaccines Aged Out No longer eligible based on patient's age to complete this topic Care Teams Family Support Specialist Relationship Specialty Start Date End Date Crescencio Allen MD [address] [place] [address] [id number] [place] [address] PCP - General 12/14/21
== END 2025-07-19 16:13 | disposition home or self-care (01) ==
DX: Z00.00 Encounter for general adult medical examination without abnormal findings (principal); F41.1 Generalized anxiety disorder; F41.0 Panic disorder [episodic paroxysmal anxiety]; F33.1 Major depressive disorder, recurrent, moderate; E55.9 Vitamin D deficiency, unspecified; K58.1 Irritable bowel syndrome with constipation; D12.6 Benign neoplasm of colon, unspecified; K21.9 Gastro-esophageal reflux disease without esophagitis; R63.4 Abnormal weight loss

== ENCOUNTER → 2025-07-19 15:30 | Outpatient (BNVA) | payer OTHER, SELFPAY | DX: Z00.00 Encounter for general adult medical examination without abnormal findings (principal); K21.9 Gastro-esophageal reflux disease without esophagitis; K59.00 Constipation, unspecified; F41.1 Generalized anxiety disorder; F41.0 Panic disorder [episodic paroxysmal anxiety]; F33.1 Major depressive disorder, recurrent, moderate; E55.9 Vitamin D deficiency, unspecified; K58.1 Irritable bowel syndrome with constipation; D12.6 Benign neoplasm of colon, unspecified; R63.4 Abnormal weight loss; Z79.899 Other long term (current) drug therapy | CPT/HCPCS: 96127; 99396 ==

== ENCOUNTER 2025-09-05 09:53 | Outpatient (REF) | payer OTHER, SELFPAY ==
[2025-09-05 10:06] LABS: MANUAL DIFF FLAG NO
[2025-09-05 10:30] LABS: Hematocrit 48.3 % (42.0-52.0); Hemoglobin 15.5 g/dl (14.0-18.0); Imm Gran Abs Auto 0.03 X10*3/uL (0.00-0.03); Imm Gran Pct Auto 0.3 % (0.0-0.4); Lymphocytes Absolute Auto 2.4 X10*3/uL (1.2-4.9); Mean Corpuscular HGB Conc 32.1 g/dl (31.0-36.0); Mean Corpuscular Hemoglobin 29.8 pg (27.0-33.0); Mean Corpuscular Volume 92.7 fL (80.0-98.0); NRBC Abs Auto 0.000 X10*3/uL (0.0-0.012); NRBC Pct Auto 0.0 /100WBC (0.0-0.2); Platelet Count 235 X10*3/uL (160-400); Red Blood Count 5.21 X10*6/uL (4.60-5.80); White Blood Count 9.4 X10*3/uL (4.8-10.8)
[2025-09-05 11:23] LABS: Alanine Aminotransferase 14 U/L (0-40); Albumin Level 4.3 g/dL (3.5-5.0); Alkaline Phosphatase 72 U/L (39-117); Anion Gap 10 (12-20); Aspartate Amino Transferase 19 U/L (5-37); Blood Urea Nitrogen 18 mg/dL (9-16); Calcium 8.9 mg/dL (8.4-10.2); Carbon Dioxide 30 mmol/L (22-29); Chloride 108 mmol/L (96-108); Cholesterol 179 mg/dL (<200); Estimated Glomerular Filt Rate > 60; HDL Cholesterol 41 mg/dL (>40); Potassium 4.7 mmol/L (3.3-5.1); Sodium 143 mmol/L (135-145); Total Protein 7.0 g/dL (6.5-8.0); Triglycerides 69 mg/dL (<150)
--- OUTSIDE RECORDS SUMMARY | 2025-09-05 11:29 | XMS_ITS | Clinical Summary ---
Author Organization [facility] Address [address] [place] [address] Care Team Providers Care Zoning Technician Name Role Phone Crescencio Allen MD Primary Care Provider [phone] Medical History Medical History Date Comments Constipation [...] Health Maintenance Due Date Last Done Comments Colorectal Cancer Screening: Colonoscopy 1973 DTaP,Tdap,and Td Vaccines (1 - Tdap) 1992 Hepatitis B Vaccines (1 of 3 - 19+ 3-dose series) 1992 Cholesterol Screening (Lipid Panel) 10/13/2022 HIV Screening 10/13/2022 Hepatitis C Screening 10/13/2022 Social Influencers of Health Screening 10/13/2022 Pneumococcal Vaccine: 50+ Ye ars (1 of 1 - PCV) 2023 Zoster Vaccines (1 of 2) 2023 Depression Screening 11/10/2024 COVID-19 Vaccine (2023-2 5 season) 2025 Influenza Vaccine (#1) 2025 RSV Immunization Adult Patie nts (1 - 1-dose 75+ series) 2048 HIB Vaccines Aged Out No longer eligi [...] age to complete this topic Care Teams Zoning Technician Relationship Specialty Start Date End Date Crescencio Allen MD [id number] [place] [address] PCP - General 12/14/21
[2025-09-05 11:38] LABS: Folate 11.1 ng/mL (> or = 4.0); Vitamin B12 499 pg/mL (200-900)
[2025-09-08 23:34] LABS: PSA, Ultra Sensitive 1.88 ng/mL
== END 2025-09-05 09:54 | disposition home or self-care (01) ==
LOC: HO.LAB 09:53
PROVIDERS: PCP Internal Medicine
DX: Z00.00 Encounter for general adult medical examination without abnormal findings (principal); E55.9 Vitamin D deficiency, unspecified; R63.4 Abnormal weight loss; Z13.21 Encounter for screening for nutritional disorder; Z13.29 Encounter for screening for other suspected endocrine disorder; Z12.5 Encounter for screening for malignant neoplasm of prostate; Z13.220 Encounter for screening for lipoid disorders
CPT/HCPCS: 36415; 80053; 80061; 82306; 82607; 82746; 84153; 84443; 85025

== ENCOUNTER 2025-11-09 08:20 | Outpatient (AMB) | payer OTHER, SELFPAY ==
[2025-11-09 08:24] VITALS: BP 122/72; PULSE 87; O2SAT 98; BMI 21.3
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
--- OUTSIDE RECORDS SUMMARY | 2025-11-09 08:24 | XMS_ITS | Clinical Summary ---
Author Organization [facility] Address [address] [place] [address] Phone Care Team Providers Care Mine Promotor Name Role Phone Crescencio Allen MD Primary Care Provider Allergies No known active allergies Medications ketorolac (TORADOL) 10 mg tablet Take 1 tablet (10 mg total) by mouth every 6 (six) hours if needed for moderate pain for up to 5 days. 20 tablet 5 10/13/20 25 sulfamethoxazol e-trimethoprim (BACTRIM DS,SEPTRA DS) 800-160 mg per tablet Take 1 tablet by mouth 2 (two) times a day for 10 days. 20 each 5 10/18/20 25 Encounters Date Type Department Care Team Description 10/08/2025 8:52 AM EST - 10/08/2025 10:44 AM EST Emergency [facility] Emergency [address] [place] [address] Acute cystitis with hematuria (Primary Dx) Discharge Disposition: Home or Self Care from Last 3 Months Medical History Medical History Date Comments Constipation 05/21/2023 DX:Constipation GERD (gastroesophageal reflux disease) 05/21/2023 DX:GERD (gastroesophageal reflux disease) Onychomycosis 05/21/2023 DX:Onychomycosis Ingrowing nail 05/21/2023 DX:Ingrowing yaz l Social History Tobacco Use Types Packs/Day Years Used Date Smoking Tobacco: Never Smokeless Tobacco: Never Tobacco Cessation:Counseling Given: Not Answered Sex and Gender Information Value Date Recorded Sex Assigned at Not on file Legal Sex Male 9:07 AM EST Gender Identity Not on file Sexual Orientation Not on file Last Filed Vital Signs Vital Sign Reading Time Taken Comments Blood Pressure 118/81 10/08/2025 10:23 AM EST Pulse 63 10/08/2025 10:23 AM EST Temperature 36.6 C (97.9 F) 10/08/2025 10:23 AM EST Respiratory Rate 16 10/08/2025 10:23 AM EST Oxygen Saturation 99% 10/08/2025 10:23 AM EST Inhaled Oxygen Concentration - - Weight 77.1 kg (170 lb) 10/08/2025 8:19 AM EST Height 188 cm (6' 2 ) 10/08/2025 8:19 AM EST Body Mass Index 21.83 10/08/2025 8:19 AM EST Plan of Treatment Health Maintenance Due Date Last Done Comments Colorectal Cancer Screening: Colonoscopy 1973 Hepatitis A Vaccines (1 of 2 - Risk 2-dose series) 1992 Hepatitis B Vaccines (1 of 3 - 19+ 3-dose series) 1992 Cholesterol Screening (Lipid Panel) 10/13/2022 HIV Screening 10/13/2022 Hepatitis C Screening 10/13/2022 Social Influencers of Health Screening 10/13/2022 Pneumococcal Vaccine: 50+ Years (1 of 1 - PCV) 2023 RSV Immunization Adult Patients (1 - Risk 50-74 years 1-dose series) 2023 Zoster Vaccines (1 of 2) 2023 Depression Screening 11/10/2024 COVID-19 Vaccine (1 - season) 2025 Influenza Vaccine (#1) 2025 4, 08/30/2022, 08/20/2019, Additional history exists DTaP,Tdap,and Td Vaccines (4 - Td or Tdap) 06/13/2030 06/13/2020, 11/14/2016, 11/20/2012 HIB Vaccines Aged Out No longer eligi [...] to complete this topic RSV Immunization Patients Under 20 months Aged Out No longer eligible based on patient's age to complete this topic Varicella Vaccines Aged Out No longer eligible based on patient's age to complete this topic Procedures Procedure Name Priority Date/Time Associated Diagnosis Comments ROSEN URINE CULTURE TUBE STAT 10/08/2025 10:05 AM EST URINALYSIS WITH REFLEX MICROSCOPIC AND CULTURE STAT 10/08/2025 10:05 AM EST URINALYSIS WITH REFLEX MICROSCOPIC AND CULTURE STAT 10/08/2025 10:05 AM EST CULTURE URINE STAT 10/08/2025 10:[address] ABDOMEN PELVIS WO CONTRAST STAT 10/08/2025 9:15 AM EST CBC WITH AUTO DIFFERENTIAL STAT 10/08/2025 9:12 AM EST CBC AND DIFFERENTIAL STAT 10/08/2025 9:12 AM EST BASIC METABOLIC PANEL STAT 10/08/2025 9:12 AM EST from Last 3 Months Results * (ABNORMAL) Urinalysis with reflex microscopic and culture (10/08/2025 10:05 AM EST) Specific [place] Urine 1.027 1.003 - 1.030 LAB URINALYSIS - AUTOMATED METHOD 10/08/2025 10:36 AM [facility] pH, Urine 7.0 5.0 - 8.0 pH LAB URINALYSIS - AUTOMATED METHOD 10/08/2025 10:36 AM [facility] Leukocytes, Urine Trace(A) Negative LAB URINALYSIS - AUTOMATED METHOD 10/08/2025 10:36 AM [facility] Nitrite, Urine Negative Negative LAB URINALYSIS - AUTOMATED METHOD 10/08/2025 10:36 AM [facility] Protein, Urine Trace <=Trace mg/dL LAB URINALYSIS - AUTOMATED METHOD 10/08/2025 10:36 AM [facility] Glucose, Urine Negative Negative mg/dL LAB URINALYSIS - AUTOMATED METHOD 10/08/2025 10:36 AM [facility] Ketones, Urine Trace(A) Negative mg/dL LAB URINALYSIS - AUTOMATED METHOD 10/08/2025 10:36 AM [facility] Urobilinogen , Urine 1.0 0.2 - 1.0 mg/dL LAB URINALYSIS - AUTOMATED METHOD 10/08/2025 10:36 AM [facility] Bilirubin, Urine Negative Negative LAB URINALYSIS - AUTOMATED METHOD 10/08/2025 10:36 AM [facility] Blood, Urine Small(A) Negative LAB URINALYSIS - AUTOMATED METHOD 10/08/2025 10:36 AM [facility] RBC, Urine 5(H) 0 - 4 /HPF 10/08/2025 10:36 AM [facility] WBC, Urine 3 0 - 4 /HPF 10/08/2025 10:36 AM [facility] Squamous Epithelial, Urine 10 0 - 60 /LPF 10/08/2025 10:36 AM [facility] Bacteria, Urine Moderate(A) Negative /HPF 10/08/2025 10:36 AM [facility] Hyaline Casts, Urine 0 0 - 3 /LPF 10/08/2025 10:36 AM [facility] Mucus, Urine Moderate None /HPF 10/08/2025 10:36 AM [facility] Urine Urine specimen obtained by clean catch procedure / Unknown Non-blood Collection / Unknown 10/08/2025 10:05 AM EST 10/08/2025 10:10 AM EST us [facility] LAB URINE ORDERABLES Final Result [facility] [address] [place] [address], [place] [phone] * Rosen urine culture tube (10/08/2025 10:05 AM EST) Extra Tube Hold for add-ons. 10/08/2025 12:01 PM EST [facility] Comment:Auto resulted. Urine Urine specimen obtained by clean catch procedure / Unknown Non-blood Collection / Unknown 10/08/2025 10:05 AM EST 10/08/2025 10:10 AM EST [facility] LAB URINE ORDERABLES Final Result Performing Organization Address [facility] de Phone Number [facility] [address] [place] [address], [place] [phone] * Culture urine (10/08/2025 10:05 AM EST) Culture, Urine No growth 10/10/2025 10:35 AM EST [facility] Urine Urine specimen obtained by clean catch procedure / Unknown Non-blood Collection / Unknown 10/08/2025 10:05 AM EST 10/08/2025 10:36 AM EST [facility] LAB MICROBIOLOGY - GENERAL ORDERABLES Final Result Performing Organization Address [facility] de Phone Number [facility] [address] [place] [address], [place] [phone] * CT Abdomen Pelvis wo Contrast (10/08/2025 9:15 AM EST) Anatomical Region Laterality Modality Body Computed Tomogra phy 10/08/2025 9:41 AM EST Impressions 10/08/2025 9:46 AM EST No acute findings in the abdomen/pelvis. No renal or ureteral calculi. No hydronephrosis. -------- FINAL REPORT -------- Dictated By: SIA SALAZAR Dictated Date: 10/08/2025 09:41 ET Assigned Physician: SIA SALAZAR Reviewed and Electronically Signed By: SIA SALAZAR Signed Date: 10/08/2025 09:46 ET Workstation ID: [id number] Transcribed By: Self Edit Transcribed Date: 10/08/2025 09:41 ET Narrative 10/08/2025 9:46 AM EST PROCEDURE: CT abdomen/pelvis INDICATION: Pain TECHNIQUE: CT of the abdomen and pelvis without contrast. Multiplanar reformats. The examination was performed utilizing dose reduction techniques. Total DLP 580 COMPARISON: 03/03/2018 FINDINGS: LOWER THORAX: Lung bases are clear. HEPATOBILIARY: No focal liver lesions. No cholelithiasis or biliary duct dilatation. SPLEEN: No splenomegaly. PANCREAS: No focal mass or ductal dilatation. ADRENALS: No nodules. KIDNEYS/URETERS: No renal or ureteral calculi. No hydronephrosis. PELVIC ORGANS/BLADDER: Prostate and bladder are normal PERITONEUM / RETROPERITONEUM: No ascites or free air. No retroperitoneal lymphadenopathy. VESSELS: Abdominal aorta is normal in size GI TRACT: No bowel obstruction or wall thickening. Appendectomy. BONES AND SOFT TISSUES: Ventral hernia repair mesh in place. Bones are normal. Procedure Note Sia Salazar MD - 10/08/2025 PROCEDURE: CT abdomen/pelvis INDICATION: Pain TECHNIQUE: CT of the abdomen and pelvis without contrast. Multiplanarreformats. The examination was performed utilizing dose reductiontechniques. Total DLP 580 COMPARISON: 03/03/2018 FINDINGS: LOWER THORAX: Lung bases are clear. HEPATOBILIARY: No focal liver lesions. No cholelithiasis or biliary ductdilatation. SPLEEN: No splenomegaly. PANCREAS: No focal mass or ductal dilatation. ADRENALS: No nodules. KIDNEYS/URETERS: No renal or ureteral calculi. No hydronephrosis. PELVIC ORGANS/BLADDER: Prostate and bladder are normal PERITONEUM / RETROPERITONEUM: No ascites or free air. No retroperitoneallymphadenopathy. VESSELS: Abdominal aorta is normal in size GI TRACT: No bowel obstruction or wall thickening. Appendectomy. BONES AND SOFT TISSUES: Ventral hernia repair mesh in place. Bones arenormal. IMPRESSION: No acute findings in the abdomen/pelvis. No renal or ureteral calculi. No hydronephrosis. -------- FINAL REPORT -------- Dictated By: SIA SALAZAR Dictated Date: 10/08/2025 09:41 ET Assigned Physician: SIA SALAZAR Reviewed and Electronically Signed By: SIA SALAZAR Signed Date: 10/08/2025 09:46 ET Workstation ID: [id number] Transcribed By: Self Edit Transcribed Date: 10/08/2025 09:41 ET [facility] IMG CT PROCEDURES Final Res ult * (ABNORMAL) CBC auto differential (10/08/2025 9:12 AM EST) WBC 8.7 4.8 - 10.8 K/mcL LAB HEMETOLOGY METHOD 10/08/2025 9:25 AM [facility] RBC 4.90 4.50 - 5.50 M/mcL LAB HEMETOLOGY METHOD 10/08/2025 9:25 AM [facility] Hemoglobin 14.7 13.5 - 17.5 g/dL LAB HEMETOLOGY METHOD 10/08/2025 9:25 AM [facility] Hematocrit 44.7 42.0 - 54.0 % LAB HEMETOLOGY METHOD 10/08/2025 9:25 AM [facility] MCV 90.9 79.0 - 98.0 FL LAB HEMETOLOGY METHOD 10/08/2025 9:25 AM [facility] MCH 29.9 27.0 - 32.0 pcg LAB HEMETOLOGY METHOD 10/08/2025 9:25 AM [facility] MCHC 32.9 32.0 - 37.0 g/dL LAB HEMETOLOGY METHOD 10/08/2025 9:25 AM [facility] RDW 12.1 11.0 - 15.0 % LAB HEMETOLOGY METHOD 10/08/2025 9:25 AM [facility] Platelets 204 130 - 400 K/mcL LAB HEMETOLOGY METHOD 10/08/2025 9:25 AM [facility] MPV 11.3(H) 7.0 - 11.0 FL LAB HEMETOLOGY METHOD 10/08/2025 9:25 AM [facility] NRBC 0.0 <1.0 % LAB HEMETOLOGY METHOD 10/08/2025 9:25 AM [facility] NRBC Absolute 0.00 <0.10 K/mcL LAB HEMETOLOGY METHOD 10/08/2025 9:25 AM [facility] Neutrophils Relative 64.2 % LAB HEMETOLOGY METHOD 10/08/2025 9:25 AM [facility] Lymphocytes Relative 25.6 % LAB HEMETOLOGY METHOD 10/08/2025 9:25 AM [facility] Monocytes Relative 6.0 % LAB HEMETOLOGY METHOD 10/08/2025 9:25 AM [facility] Eosinophils Relative 2.8 % LAB HEMETOLOGY METHOD 10/08/2025 9:25 AM [facility] Basophils Relative 0.9 % LAB HEMETOLOGY METHOD 10/08/2025 9:25 AM [facility] Immature Granulocytes Relative 0.5 % LAB HEMETOLOGY METHOD 10/08/2025 9:25 AM [facility] Neutrophils Absolute 5.57 1.50 - 7.00 K/mcL LAB HEMETOLOGY METHOD 10/08/2025 9:25 AM [facility] Lymphocytes Absolute 2.22 1.00 - 5.00 K/mcL LAB HEMETOLOGY METHOD 10/08/2025 9:25 AM [facility] Monocytes Absolute 0.52 0.20 - 1.00 K/mcL LAB HEMETOLOGY METHOD 10/08/2025 9:25 AM [facility] Eosinophils Absolute 0.24 0.00 - 0.50 K/[facility] LAB HEMETOLOGY METHOD 10/08/2025 9:25 AM EST [facility] Basophils Absolute 0.08 0.00 - 0.20 K/[facility] LAB HEMETOLOGY METHOD 10/08/2025 9:25 AM EST [facility] Immature Granulocytes Absolute 0.04(H) 0.00 - 0.03 K/[facility] HEMETOLOGY METHOD 10/08/2025 9:25 AM EST [facility] Blood Venous blood specimen / Unknown Venipuncture / Unknown 10/08/2025 9:12 AM EST 10/08/2025 9:20 AM EST [facility] LAB BLOOD ORDERABLES Final Result [facility] [address] [place] [address], * (ABNORMAL) Basic Metabolic Panel (BMP) (10/08/2025 9:12 AM EST) Sodium 144 133 - 145 mmol/L 10/08/2025 9:46 AM [facility] Potassium 4.2 3.5 - 5.5 mmol/L 10/08/2025 9:46 AM [facility] Chloride 108 96 - 110 mmol/L 10/08/2025 9:46 AM [facility] CO2 31 21 - 32 mmol/L 10/08/2025 9:46 AM [facility] Anion Gap 5 3 - 11 10/08/2025 9:46 AM [facility] Glucose 115(H) 70 - 100 mg/dL 10/08/2025 9:46 AM [facility] BUN 17 5 - 25 mg/dL 10/08/2025 9:46 AM [facility] Creatinine 1.01 0.70 - 1.30 mg/dL 10/08/2025 9:46 AM EST [facility] eGFR 89 >=60 mL/min/1. 73m2 10/08/2025 9:46 AM EST [facility] Comment:Calculation based on the Chronic Kidney Disease Epidemiology Collaboration (CKD-EPI) equation refit without adjustment for race. BUN/Creatinine Ratio 16.8 10/08/2025 9:46 AM EST [facility] Calcium 9.0 8.5 - 10.5 mg/dL 10/08/2025 9:46 AM [facility] Blood Venous blood specimen / Unknown Venipuncture / Unknown 10/08/2025 9:12 AM EST 10/08/2025 9:20 AM EST us [facility] LAB BLOOD ORDERABLES Final Result [facility] [address] [place] [address], [place] [phone] from Last 3 Months Insurance [facility] Care Teams Mine Promotor Relationship Specialty Start Date End Date Crescencio Allen MD [address] [place] [address] [id number] [place] [address] PCP - General 12/14/21
== END 2025-11-09 09:04 | disposition home or self-care (01) ==
LOC: HO.HMCH 08:21
PROVIDERS: Visit Provider Internal Medicine
DX: K21.9 Gastro-esophageal reflux disease without esophagitis (principal); D12.6 Benign neoplasm of colon, unspecified; F41.1 Generalized anxiety disorder; F41.0 Panic disorder [episodic paroxysmal anxiety]; R73.01 Impaired fasting glucose; R63.4 Abnormal weight loss; Z23 Encounter for immunization

== ENCOUNTER → 2025-11-09 08:20 | Outpatient (BNVA) | payer OTHER, SELFPAY | PROVIDERS: Visit Provider Internal Medicine | DX: R63.4 Abnormal weight loss (principal); R73.01 Impaired fasting glucose; F41.1 Generalized anxiety disorder; F41.0 Panic disorder [episodic paroxysmal anxiety]; D12.6 Benign neoplasm of colon, unspecified; K21.9 Gastro-esophageal reflux disease without esophagitis; Z13.31 Encounter for screening for depression; Z23 Encounter for immunization | CPT/HCPCS: 90471; 90656; 99212 ==